=== PATIENT | female | born 1940 | race African-American/Black ===

== ENCOUNTER 2017-02-20 17:49 | Inpatient (IN) | payer MEDICARE, BC ==
[~2017-02-20] VITALS: Ht 152.4 cm; Wt 54.4 kg
[2017-02-20 17:53] VITALS: BP 79/56
[2017-02-20] MEDS ORDERED: ACETAMINOP160 MG/54 ORAL (18:18)
[2017-02-20] MEDS ORDERED: VANCOCIN250 MG IVPB (18:18)
[2017-02-20] MEDS ORDERED: BISACODYL5 MG RC (18:18)
[2017-02-20] MEDS ORDERED: XARELTO10 MG ORAL (18:18)
[2017-02-20] MEDS ORDERED: OXYCODONE HCL5 M2 ORAL (18:18)
[2017-02-20] MEDS ORDERED: ALOE VERA25 MG PO (18:18)
[2017-02-20] MEDS ORDERED: CLOPIDOGREL75 MG ORAL (18:18)
[2017-02-20] MEDS ORDERED: PROTONIX40 MG ORAL (18:18)
[2017-02-20] MEDS ORDERED: FLUCONAZOLE100 MG IVPB (18:18)
[2017-02-20] MEDS ORDERED: PYRIDOXINE HCL50 MG ORAL (18:18)
[2017-02-20] MEDS ORDERED: SENNA8.6 M2 PO (18:18)
[2017-02-20] MEDS ORDERED: ASCORBIC ACID500 MG ORAL (18:18)
[2017-02-20] MEDS ORDERED: FLEET ENEMA133 ML RECTAL (18:18)
[2017-02-20] MEDS ORDERED: VITAMIN B COMP1 EAC2 ORAL (18:18)
[2017-02-20] MEDS ORDERED: COLACE100 MG ORAL (18:18)
[2017-02-20] MEDS ORDERED: MILK OF MA400 MG/51 ORAL (18:18)
--- NOTE | 2017-02-20 18:26 | Emergency Room Report ---
History of Present Illness General Chief Complaint: Dyspnea/Respdistress Source: Medical Record, EMS Present Illness HPI Patient was brought in from nursing facility with complaints of shortness of breath Patient herself is essentially nonverbal makes eye contact however Patient has history of stage III uterine cancer and pe Patient was found to be short of breath And paramedics were summoned Again patient herself is unable to provide any history this does limit the history of present illness Unknown regarding recent fever no reports of any vomiting or diarrhea Allergies: Coded Allergies: IODINE (Verified Allergy, Mild, 10/11/11) PENICILLIN G (Verified Allergy, Mild, 10/11/11) SULFA (SULFONAMIDE ANTIBIOTICS) (Verified Allergy, Mild, 10/11/11) PENICILLINS (Unverified Allergy, Unknown, 02/20/17) Patient History Limited by: medical condition Past Medical History: see triage record Pertinent Family History: unable to obtain Reviewed Nursing Documentation: PMH: Agreed, PSxH: Agreed Nursing Documentation-PMH Hx Cardiac Problems: Yes - PE Hx Hypertension: Yes Hx Diabetes: Yes Review of Systems All Other Systems: limited - Other than the ones mentioned in the history of present illness all others are reviewed however they do stay limited due to the patient's mental status Physical Exam Vital Signs Date Time Temp Pulse Resp B/P Pulse Ox O2 Delivery O2 Flow Rate FiO2 02/20/17 17:47 75 25 80/50 85 Non-Rebreather 15.0 Sp02 EP Interpretation: abnormal - low percentage, on 10 liter 94 % which is normal General Appearance: mild distress - appears short of breath Head: normocephalic, atraumatic Eyes: bilateral eye PERRL ENT: normal pharynx, no angioedema Neck: supple, thyroid normal Respiratory: crackles - diffusely Cardiovascular #1: regular rate, rhythm, no edema Gastrointestinal: non tender Musculoskeletal: other - No obvious focal deficit, patient moving both upper extremities equally Neurologic: responsive - to physical stimuli Skin: no rash Lymphatic: no adenopathy Medical Decision Making Diagnostic Impression: Primary Impression: Pneumonia Additional Impression: Metastatic lung carcinoma ER Course Patient is a fairly complex patient with multiple differential to consideration including but not limited to cardiac cardiopulmonary and vascular emergencies Patient's x-ray appears abnormal CT chest was obtained for further evaluation There is evidence of bilateral effusions and what appears to be likely metastatic carcinoma Patient at this time is doing significantly better with acute intervention saturations and blood pressure have improved Patient initiated on initial antibiotics and requires further care Labs Test 02/20/17 18:00 02/20/17 18:40 White Blood Count 12.6 K/UL (4.8-10.8) Red Blood Count 3.57 M/UL (4.20-5.40) Hemoglobin 11.1 G/DL (12.0-16.0) Hematocrit 33.4 % (37.0-47.0) Mean Corpuscular Volume 94 FL (80-99) Mean Corpuscular Hemoglobin 31.0 PG (27.0-31.0) Mean Corpuscular Hemoglobin Concent 33.1 G/DL (32.0-36.0) Red Cell Distribution Width 13.9 % (11.6-14.8) Platelet Count 188 K/UL (150-450) Mean Platelet Volume 6.7 FL (6.5-10.1) Neutrophils (%) (Auto) % (45.0-75.0) Lymphocytes (%) (Auto) % (20.0-45.0) Monocytes (%) (Auto) % (1.0-10.0) Eosinophils (%) (Auto) % (0.0-3.0) Basophils (%) (Auto) % (0.0-2.0) Differential Total Cells Counted 100 Neutrophils % (Manual) 87 % (45-75) Lymphocytes % (Manual) 7 % (20-45) Monocytes % (Manual) 4 % (1-10) Eosinophils % (Manual) 0 % (0-3) Basophils % (Manual) 0 % (0-2) Band Neutrophils 2 % (0-8) Platelet Estimate Adequate Platelet Morphology Normal Red Blood Cell Morphology Normal Prothrombin Time 12.5 SEC (9.30-11.50) Prothromb Time International Ratio 1.2 (0.9-1.1) Activated Partial Thromboplast Time 41 SEC (23-33) Sodium Level 132 mEQ/L (135-145) Potassium Level 3.8 mEQ/L (3.4-4.9) Chloride Level 97 mEQ/L (98-107) Carbon Dioxide Level 15 mEQ/L (20-30) Anion Gap 20 (5-15) Blood Urea Nitrogen 16 mg/dL (7-23) Creatinine 1.4 mg/dL (0.5-0.9) Estimat Glomerular Filtration Rate mL/min (>60) Glucose Level 105 mg/dL (74-106) Lactic Acid Level 1.30 mmol/L (0.66-2.22) Calcium Level 8.5 mg/dL (8.6-10.2) Total Bilirubin 0.3 mg/dL (0.0-1.2) Aspartate Amino Transf (AST/SGOT) 12 U/L (5-40) Alanine Aminotransferase (ALT/SGPT) 5 U/L (3-33) Alkaline Phosphatase 77 U/L (35-104) Total Creatine Kinase 16 U/L (26-140) Creatine Kinase MB 2.1 ng/mL (< 3.8) Creatine Kinase MB Relative Index 13.1 Troponin I < 0.30 ng/mL (<=0.30) Pro-B-Type Natriuretic Peptide 895 pg/mL (0-450) Total Protein 5.4 g/dL (6.6-8.7) Albumin 2.0 g/dL (3.5-5.2) Globulin 3.4 g/dL Albumin/Globulin Ratio 0.5 (1.0-2.7) Lipase 8 U/L (< 60) Arterial Blood pH 7.225 (7.350-7.450) Arterial Blood Partial Pressure CO2 44.2 mmHg (35.0-45.0) Arterial Blood Partial Pressure O2 24.3 mmHg (75.0-100.0) Arterial Blood HCO3 17.9 mmol/L (22.0-26.0) Arterial Blood Oxygen Saturation 39.9 % (92.0-98.0) Arterial Blood Base Excess -9.4 Nando Test Positive Rhythm Strip Diag. Results EP Interpretation: yes Rate: 67 Rhythm: NSR, no PVC's, no ectopy, other - Nonspecific ST and T-wave changes Chest X-Ray Diagnostic Results EP Interpretation: Yes Findings: no pneumothorax, other - Bilateral effusions, right appears to be worse and left borderline cardiomegaly no acute bony abnormalities, Number of Views: 1 CT/MRI/US Diagnostic Results CT/MRI/US Diagnostic Results : Impression CT chest: Bilateral effusions bilateral lung nodules consistent with metastatic disease liver mass splenic calcifications Last Vital Signs Date Time Temp Pulse Resp B/P Pulse Ox O2 Delivery O2 Flow Rate FiO2 02/20/17 17:47 75 25 80/50 85 Non-Rebreather 15.0 Status: improved Disposition: ADMITTED INPATIENT Condition: Serious SHAUN ABURTO D.O. Feb 20, 2017 18:26
[2017-02-20 18:32] LABS: MEAN CORPUSCULAR HGB CONC 33.1 G/DL (32.0-36.0); MEAN CORPUSCULAR VOLUME 94 FL (80-99); MEAN PLATELET VOLUME 6.7 FL (6.5-10.1); PLATELET COUNT 188 K/UL (150-450); RED BLOOD COUNT 3.57 M/UL (4.20-5.40); RED CELL DISTRIBUTION WIDTH 13.9 % (11.6-14.8); WHITE BLOOD COUNT 12.6 K/UL (4.8-10.8)
[2017-02-20 18:44] LABS: ABG ALLEN TEST POSITIVE; ABG BASE EXCESS -9.4; ABG PCO2 44.2 mmHg (35.0-45.0)
[2017-02-20 18:46] LABS: ALANINE AMINOTRANSFERASE 5 U/L (3-33); ALBUMIN/GLOBULIN RATIO 0.5 (1.0-2.7); ANION GAP 20 (5-15); ASPARTATE AMINO TRANSFERASE 12 U/L (5-40); CALCIUM 8.5 mg/dL (8.6-10.2); CARBON DIOXIDE 15 mEQ/L (20-30); CHLORIDE 97 mEQ/L (98-107); CREATININE 1.4 mg/dL (0.5-0.9); HEMOLYSIS 10; LIPASE 8 U/L (< 60); POTASSIUM 3.8 mEQ/L (3.4-4.9); SODIUM 132 mEQ/L (135-145); TOTAL PROTEIN 5.4 g/dL (6.6-8.7); TROPONIN I < 0.30 ng/mL (<=0.30)
[2017-02-20 18:56] LABS: CKMB 2.1 ng/mL (< 3.8)
[2017-02-20] MEDS ORDERED: Aztreonam Inj 1 GM in NS 55 ML IV ONE (19:15)
[2017-02-20 19:38] LABS: INR 1.2 (0.9-1.1); PROTHROMBIN TIME 12.5 SEC (9.30-11.50)
[2017-02-20 20:04] LABS: BAND NEUTROPHILS % (MANUAL) 2 % (0-8); LYMPHOCYTES % (MANUAL) 7 % (20-45); NEUTROPHILS % (MANUAL) 87 % (45-75); TOTAL CELLS COUNTED 100
[2017-02-20 20:05] LABS: BASOPHILS % (MANUAL) 0 % (0-2); EOSINOPHILS % (MANUAL) 0 % (0-3); PLATELET ESTIMATE ADEQUATE
[2017-02-20 20:06] LABS: PLATELET MORPHOLOGY NORMAL
[2017-02-20 20:19] VITALS: BP 101/65
[2017-02-20 21:22] VITALS: BP 85/55
[2017-02-20 21:24] LABS: KETONES,URINE 1+ (NEGATIVE); LEUKOCYTE ESTERASE ,URINE 3+ (NEGATIVE); NITRITE,URINE POSITIVE (NEGATIVE); PH,URINE 6.5 (4.5-8.0); PROTEIN,URINE 3+ (NEGATIVE); UROBILINOGEN,URINE 1 MG/DL (0.0-1.0)
[2017-02-20 21:26] LABS: APPEARANCE,URINE VERY CLOUDY
[2017-02-20 21:27] LABS: RBC,URINE TNTC /HPF (0 - 2); WBC,URINE TNTC /HPF (0 - 2)
[2017-02-20 21:28] LABS: BACTERIA,URINE MANY /HPF; SQUAMOUS EPITHELIAL CELL,UR MANY /LPF (NONE/OCC)
[2017-02-20] MEDS ORDERED: Miralax 17gm pkt ORAL PRN (21:30)
[2017-02-20] MEDS ORDERED: DuoNeb 0.5-3(2.5)mg/3ml neb HHN PRN (21:30)
[2017-02-20] MEDS ORDERED: Promethazine/Codeine 5ml UD ORAL PRN (21:30)
[2017-02-20] MEDS ORDERED: Nitroglycerin Subl 0.4mg tab (Bottle Of 25) SL PRN (21:30)
[2017-02-20] MEDS ORDERED: Mylanta II UD 30ml ORAL PRN (21:30)
[2017-02-20 22:00] VITALS: BP 111/51
[2017-02-20] MEDS ORDERED: Vancomycin 500mg in D5W 110ml IVPB SCH (23:00)
[2017-02-21 04:00] VITALS: BP 119/56
[2017-02-21] MEDS ORDERED: Aztreonam Inj 0.5 GM in D5W 55 ML IVPB SCH (06:00)
--- NOTE | 2017-02-21 06:07 | Consultation ---
Consult Note Consult Note ID Dic # [id number] ANDIE MOREL M.D. Feb 21, 2017 06:07
[2017-02-21 08:00] VITALS: BP 82/59
[2017-02-21 08:19] LABS: MEAN CORPUSCULAR HEMOGLOBIN 31.2 PG (27.0-31.0); MEAN CORPUSCULAR HGB CONC 33.3 G/DL (32.0-36.0); MEAN CORPUSCULAR VOLUME 94 FL (80-99); MEAN PLATELET VOLUME 5.8 FL (6.5-10.1); PLATELET COUNT 200 K/UL (150-450); RED BLOOD COUNT 3.76 M/UL (4.20-5.40); WHITE BLOOD COUNT 8.3 K/UL (4.8-10.8)
[2017-02-21 08:38] LABS: ANION GAP 21 (5-15); CALCIUM 9.1 mg/dL (8.6-10.2); CARBON DIOXIDE 15 mEQ/L (20-30); CHLORIDE 98 mEQ/L (98-107); CREATININE 1.4 mg/dL (0.5-0.9); HEMOLYSIS 5; PHOSPHORUS 2.9 mg/dL (2.5-4.8); POTASSIUM 3.8 mEQ/L (3.4-4.9); SODIUM 134 mEQ/L (135-145)
--- NOTE | 2017-02-21 08:39 | Consultation ---
DATE OF CONSULTATION: INFECTIOUS DISEASE CONSULTATION: REFERRING PHYSICIAN: Jignesh Isbell M.D. REASON FOR CONSULTATION: Evaluation of patient for pneumonia and antibiotic management. HISTORY OF PRESENT ILLNESS: The patient is a 77-year-old female with multiple medical problems, who was admitted to this medical center due to shortness of breath. The patient having cough, however, according to the nurse at the bedside the patient has cough time. The patient also mentioned having bilateral lower extremity edema x1 week. Infectious consultation has been requested for further evaluation of the patient's antibiotic management. PAST MEDICAL HISTORY: 1. History of PE. 2. Hypertension. 3. History of lung cancer. 4. History . 5. Diabetes. MEDICATIONS: Levaquin and vancomycin. ALLERGIES: Iodine, penicillin, and sulfa. SOCIAL HISTORY: The patient lives at home with her son. FAMILY HISTORY: Noncontributory. PHYSICAL EXAMINATION: VITAL SIGNS: Temperature 97 degrees, pulse 86, respiratory rate 18, and blood pressure 119/56. HEENT: Mild pale conjunctivae. No icterus. NECK: No lymphadenopathy. CHEST: Coarse breathing sounds. HEART: S1 and S2. ABDOMEN: Soft and nontender. EXTREMITIES: Bilateral lower extremity edema. No evidence of cellulitis, cyanosis. NEUROLOGIC: Awake and alert. LABORATORY AND DIAGNOSTIC DATA: WBC 12, hemoglobin 11, and platelet 188,000. UA shows too numerous to count red blood cells and too numerous to count white blood cells. BUN 16 and creatinine 1.4. ALT, AST, and alkaline phosphatase unremarkable. Urine Legionella antigen is pending. Chest x-ray results are pending. ASSESSMENT: The patient is a 77-year-old female with multiple medical problems who was been admitted to this medical center due to shortness of breath and cough. The patient has mild leukocytosis. Chest x-ray result is pending. However, the patient coverage for community-acquired pneumonia. In view of her bilateral lower extremities, rule out possibility of DVT. PLAN: 1. We will continue the patient on IV Levaquin and hold IV vancomycin. 2. Monitor CBC. 3. Monitor BMP. 4. Monitor cultures (blood, sputum, and urine). 5. Monitor chest x-ray result. 6. Doppler lower extremity, rule out possibility of DVT. 7. Based on the patient's clinical course and labs, we will do further recommendation. Thank you, Dr. Isbell, for allowing me to participate in the care of this patient. I will follow the patient with you during this hospitalization. Haja Hutchison M.D. DR: Elizabeth JOB#: [id number] CC:
--- NOTE | 2017-02-21 09:12 | Diagnostic Imaging Report ---
Indications: Shortness of breath Technique: Continuous helical CT imaging of the thorax and upper abdomen was performed with automatic exposure control on a Siemens sensation [address] scanner. Axial images were reconstructed at 5 mm slice thickness and interval. Coronal images were reconstructed at 5 mm slice thickness. No IV contrast was administered secondary to requesting physician's order, despite no contraindications listed in either submitted clinical data or tech note.. CTDI volume(s): 16 mGy Total DLP: 568 mGy-cm Findings: Comparison: None Lack of IV contrast limits evaluation. Circumscribed soft tissue nodules are scattered throughout both lungs, up to 2 cm diameter. None appears calcified. Parenchymal consolidation and volume loss with air bronchograms in both lung bases. Large bilateral pleural effusions. Heart not enlarged. No obvious pericardial abnormality. Prominent arterial mural calcifications. Vascular patency indeterminate. Thoracic aorta nonaneurysmal. Calcified nodules throughout the mediastinum, left hilum. Diffuse body wall edema. Right upper extremity PICC in place, tip in superior vena cava. Left breast asymmetrically smaller than right. Surgical clips in left axilla. 3 cm low-attenuation mass hepatic segment 7 not further characterizable. Multiple punctate calcifications in the spleen. 2 cm circumscribed low attenuation mass upper pole cortex right kidney. Bilateral ureteral stents in place. Mild dilation of bilateral renal collecting systems. 3 cm right adrenal mass, 1 cm left adrenal mass, nonspecific. Osteophytes throughout thoracic, lower cervical, upper lumbar spine. IMPRESSION: Multiple lung masses compatible with metastatic neoplasm Evidence of previous left breast and axillary surgery--correlate for history of breast cancer Pulmonary bibasal atelectasis versus pneumonias Large bilateral pleural effusions, nonspecific Calcified old granulomas disease Arteriosclerosis Anasarca Nonspecific liver mass. Metastasis not excludable. Bilateral adrenal masses. Metastases must be excluded. Nonspecific right renal masses-cysts versus neoplasm Mild bilateral hydronephrosis despite ureteral stents in place, incompletely imaged. Stent obstruction not excludable. Further evaluation warranted. Degenerative spondylosis Right upper extremity PICC This correlates with Dr. Tolentino's preliminary report.
[2017-02-21] MEDS: Pyridoxine 50mg tab ORAL SCH (09:13)
--- NOTE | 2017-02-21 10:16 | Diagnostic Imaging Report ---
Indications: Shortness breath Technique: Portable AP chest Findings: Comparison: None Soft tissue nodules scattered throughout both lungs. Bilateral pleural effusions. Underlying parenchymal consolidation in either or both lung bases not excludable. Cardiac silhouette obscured. Bony vasculature obscured. Aortic arch calcified. Right upper extremity PICC. Left axillary surgical clips. IMPRESSION: Lateral lung nodules--granulomatous versus neoplastic Bibasal pleural effusions, nonspecific. Underlying atelectasis or pneumonia not excludable. Aortosclerosis PICC Previous left axillary surgery
[2017-02-21 10:19] LABS: BAND NEUTROPHILS % (MANUAL) 1 % (0-8); BASOPHILS % (MANUAL) 0 % (0-2); BURR CELLS 1+; EOSINOPHILS % (MANUAL) 0 % (0-3); LYMPHOCYTES % (MANUAL) 5 % (20-45); NEUTROPHILS % (MANUAL) 91 % (45-75); PLATELET ESTIMATE ADEQUATE; PLATELET MORPHOLOGY NORMAL; TOTAL CELLS COUNTED 100
--- NOTE | 2017-02-21 11:01 | Cardiology Report ---
APPROVED REPORT EKG Measurement Heart [id number] CT 134P4 [id number] Normal sinus rhythm Low voltage QRS Cannot rule out Anterior infarct, age undetermined Abnormal ECG
[2017-02-21 12:00] VITALS: BP 82/61
--- NOTE | 2017-02-21 12:56 | History and Physical ---
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 brought in with complaints of shortness of breath. Patient is essentially nonverbal makes eye contact however Pt was in respiratory failure on arrival of paramedics. She was put on NRM and her saturation improved. CXR and CT showed extensive metastatic disease. Allergies: Coded Allergies: IODINE (Verified Allergy, Mild, 10/11/11) PENICILLIN G (Verified Allergy, Mild, 10/11/11) SULFA (SULFONAMIDE ANTIBIOTICS) (Verified Allergy, Mild, 10/11/11) PENICILLINS (Unverified Allergy, Unknown, 02/20/17) Medication History Scheduled Ascorbic Acid* (Ascorbic Acid*), 500 MG ORAL DAILY, (Reported) Clopidogrel* (Clopidogrel*), 75 MG ORAL DAILY, (Reported) Docusate Sodium* (Colace*), 100 MG ORAL TWICE A DAY, (Reported) Fluconazole (Fluconazole), 100 MG IVPB DAILY, (Reported) Magnesium Hydroxide* (Milk Of Magnesia*), 30 ML ORAL DAILY, (Reported) Pantoprazole* (Protonix*), 40 MG ORAL DAILY, (Reported) Pyridoxine Hcl* (Vitamin B-6*), 50 MG ORAL DAILY, (Reported) Rivaroxaban (Xarelto*), 20 MG ORAL DAILY, (Reported) Vancomycin HCl (Vancocin HCl), 500 MG IVPB Q18 HRS, (Reported) Scheduled PRN Acetaminophen* (Acetaminophen*), 650 MG ORAL Q6H PRN for Mild Pain/Temp > 100.5, (Reported) Bisacodyl* (Dulcolax*), 10 MG RC ONCE PRN for Constipation, (Reported) Na Phos,M-B/Na Phos,Di-Ba* (Fleet Enema*), 133 ML RECTAL DAILY PRN for Constipation, (Reported) Oxycodone Hcl* (Oxycodone Hcl*), 5 MG ORAL Q4H PRN for For Pain, (Reported) Miscellaneous Medications Aloe Vera (Aloe Vera), 25 MG PO, (Reported) Sennosides (Senna), 8.6 MG PO, (Reported) Vitamin B Complex (Vitamin B Complex), 1 CAP ORAL, (Reported) Patient History Healthcare decision maker Resuscitation status Chemical (Meds Only) Advanced Directive on File Past Medical/Surgical History Past Medical/Surgical History: (1) Diabetes (2) Obstructive uropathy Review of Systems All Other Systems: negative except mentioned in HPI Physical Exam General Appearance: cachetic Lines, tubes and drains: peripheral, central line HEENT: normocephalic, atraumatic Neck: non-tender, normal alignment Respiratory/Chest: rhonchi - bilaterally Cardiovascular/Chest: normal peripheral pulses, normal rate Abdomen: normal bowel sounds, non tender Genitourinary/Rectal: normal genital exam Extremities: normal range of motion Skin Exam: normal pigmentation Neurologic: relationship management lead II-XII grossly normal Last 24 Hour Vital Signs Date Time Temp Pulse Resp B/P Pulse Ox O2 Delivery O2 Flow Rate FiO2 02/21/17 12:00 97.2 87 16 82/61 93 Room Air 02/21/17 08:00 97.7 65 16 82/59 100 Room Air 02/21/17 08:00 82 02/21/17 04:00 97.0 82 16 119/56 94 Room Air 02/21/17 04:00 79 02/20/17 22:08 97.8 85 17 85/55 100 Nasal Cannula 2.0 02/20/17 22:00 96.8 81 20 111/51 98 Nasal Cannula 2.0 02/20/17 21:22 97.8 85 17 85/55 100 Nasal Cannula 2.0 02/20/17 20:19 97.8 89 17 101/65 100 Room Air 02/20/17 17:53 96.7 88 22 79/56 95 Non-Rebreather 15.0 02/20/17 17:53 75 25 Room Air 15.0 02/20/17 17:47 75 25 80/50 85 Non-Rebreather 15.0 Intake and Output 02/20/17 02/21/17 19:00 07:00 Intake Total 55 ml Output Total 200 ml Balance -145 ml Intake Oral 0 ml IV Total 55 ml Output Urine Total 200 ml Laboratory Tests Test 02/20/17 18:00 02/20/17 18:40 02/20/17 20:50 02/20/17 21:22 White Blood Count 12.6 K/UL (4.8-10.8) H Red Blood Count 3.57 M/UL (4.20-5.40) L Hemoglobin 11.1 G/DL (12.0-16.0) L Hematocrit 33.4 % (37.0-47.0) L Mean Corpuscular Volume 94 FL (80-99) Mean Corpuscular Hemoglobin 31.0 PG (27.0-31.0) Mean Corpuscular Hemoglobin Concent 33.1 G/DL (32.0-36.0) Red Cell Distribution Width 13.9 % (11.6-14.8) Platelet Count 188 K/UL (150-450) Mean Platelet Volume 6.7 FL (6.5-10.1) Neutrophils (%) (Auto) % (45.0-75.0) Lymphocytes (%) (Auto) % (20.0-45.0) Monocytes (%) (Auto) % (1.0-10.0) Eosinophils (%) (Auto) % (0.0-3.0) Basophils (%) (Auto) % (0.0-2.0) Differential Total Cells Counted 100 Neutrophils % (Manual) 87 % (45-75) H Lymphocytes % (Manual) 7 % (20-45) L Monocytes % (Manual) 4 % (1-10) Eosinophils % (Manual) 0 % (0-3) Basophils % (Manual) 0 % (0-2) Band Neutrophils 2 % (0-8) Platelet Estimate Adequate Platelet Morphology Normal Red Blood Cell Morphology Normal Prothrombin Time 12.5 SEC (9.30-11.50) H Prothromb Time International Ratio 1.2 (0.9-1.1) H Activated Partial Thromboplast Time 41 SEC (23-33) H Sodium Level 132 mEQ/L (135-145) L Potassium Level 3.8 mEQ/L (3.4-4.9) Chloride Level 97 mEQ/L (98-107) L Carbon Dioxide Level 15 mEQ/L (20-30) L Anion Gap 20 (5-15) H Blood Urea Nitrogen 16 mg/dL (7-23) Creatinine 1.4 mg/dL (0.5-0.9) H Estimat Glomerular Filtration Rate mL/min (>60) Glucose Level 105 mg/dL (74-106) Lactic Acid Level 1.30 mmol/L (0.66-2.22) Calcium Level 8.5 mg/dL (8.6-10.2) L Total Bilirubin 0.3 mg/dL (0.0-1.2) Aspartate Amino Transf (AST/SGOT) 12 U/L (5-40) Alanine Aminotransferase (ALT/SGPT) 5 U/L (3-33) Alkaline Phosphatase 77 U/L (35-104) Total Creatine Kinase 16 U/L (26-140) L Creatine Kinase MB 2.1 ng/mL (< 3.8) Creatine Kinase MB Relative Index 13.1 Troponin I < 0.30 ng/mL (<=0.30) Pro-B-Type Natriuretic Peptide 895 pg/mL (0-450) H Total Protein 5.4 g/dL (6.6-8.7) L Albumin 2.0 g/dL (3.5-5.2) L Globulin 3.4 g/dL Albumin/Globulin Ratio 0.5 (1.0-2.7) L Lipase 8 U/L (< 60) Arterial Blood pH 7.225 (7.350-7.450) Arterial Blood Partial Pressure CO2 44.2 mmHg (35.0-45.0) Arterial Blood Partial Pressure O2 24.3 mmHg (75.0-100.0) Arterial Blood HCO3 17.9 mmol/L (22.0-26.0) L Arterial Blood Oxygen Saturation 39.9 % (92.0-98.0) L Arterial Blood Base Excess -9.4 Nando Test Positive Urine Color Yellow Urine Appearance Very cloudy Urine pH 6.5 (4.5-8.0) Urine Specific [place] 1.010 (1.005-1.035) Urine Protein 3+ (NEGATIVE) H Urine Glucose (UA) Negative (NEGATIVE) Urine Ketones 1+ (NEGATIVE) H Urine Occult Blood 5+ (NEGATIVE) H Urine Nitrite Positive (NEGATIVE) H Urine Bilirubin Negative (NEGATIVE) Urine Urobilinogen 1 MG/DL (0.0-1.0) H Urine Leukocyte Esterase 3+ (NEGATIVE) H Urine RBC Tntc /HPF (0 - 2) H Urine WBC Tntc /HPF (0 - 2) H Urine Squamous Epithelial Cells Many /LPF (NONE/OCC) H Urine Bacteria Many /HPF (NONE) H Urine Legionella Antigen Pending Test 02/21/17 07:40 White Blood Count 8.3 K/UL (4.8-10.8) Red Blood Count 3.76 M/UL (4.20-5.40) L Hemoglobin 11.7 G/DL (12.0-16.0) L Hematocrit 35.2 % (37.0-47.0) L Mean Corpuscular Volume 94 FL (80-99) Mean Corpuscular Hemoglobin 31.2 PG (27.0-31.0) H Mean Corpuscular Hemoglobin Concent 33.3 G/DL (32.0-36.0) Red Cell Distribution Width 14.0 % (11.6-14.8) Platelet Count 200 K/UL (150-450) Mean Platelet Volume 5.8 FL (6.5-10.1) L Neutrophils (%) (Auto) % (45.0-75.0) Lymphocytes (%) (Auto) % (20.0-45.0) Monocytes (%) (Auto) % (1.0-10.0) Eosinophils (%) (Auto) % (0.0-3.0) Basophils (%) (Auto) % (0.0-2.0) Differential Total Cells Counted 100 Neutrophils % (Manual) 91 % (45-75) H Lymphocytes % (Manual) 5 % (20-45) L Monocytes % (Manual) 3 % (1-10) Eosinophils % (Manual) 0 % (0-3) Basophils % (Manual) 0 % (0-2) Band Neutrophils 1 % (0-8) Platelet Estimate Adequate Platelet Morphology Normal [place] Cells 1+ Sodium Level 134 mEQ/L (135-145) L Potassium Level 3.8 mEQ/L (3.4-4.9) Chloride Level 98 mEQ/L (98-107) Carbon Dioxide Level 15 mEQ/L (20-30) L Anion Gap 21 (5-15) H Blood Urea Nitrogen 16 mg/dL (7-23) Creatinine 1.4 mg/dL (0.5-0.9) H Estimat Glomerular Filtration Rate mL/min (>60) Glucose Level 83 mg/dL (74-106) Calcium Level 9.1 mg/dL (8.6-10.2) Phosphorus Level 2.9 mg/dL (2.5-4.8) Albumin 2.2 g/dL (3.5-5.2) L Height (Feet): 5 Height (Inches): 0.00 Weight (Pounds): 120 Medications Current Medications Medications (Trade) Dose Ordered Sig/Calvin Route PRN Reason Start Time Stop Time Status Last Admin Dose Admin Acetaminophen (Tylenol) 650 mg Q4H PRN ORAL fever 02/20/17 21:30 03/22/17 21:29 02/21/17 09:45 Al Hydroxide/Mg Hydroxide (Mylanta II) 30 ml Q6H PRN ORAL dyspepsia 02/20/17 21:30 03/22/17 21:29 Albuterol/ Ipratropium (DuoNeb 0.5-3(2.5)mg/3ml) 3 ml Q4H PRN HHN Shortness of Breath 02/20/17 21:30 02/25/17 21:29 Levofloxacin (Levaquin) 50 ml @ 50 mls/hr Q24H IVPB 02/21/17 20:00 02/28/17 19:59 Nitroglycerin (Ntg) 0.4 mg Q5MIN X 3 DOSES PRN SL Prn Chest Pain 02/20/17 21:30 03/22/17 21:29 Ondansetron HCl (Zofran) 4 mg Q6H PRN IVP Nausea & Vomiting 02/20/17 21:30 03/22/17 21:29 Polyethylene Glycol (Miralax) 17 gm DAILYPRN PRN ORAL Constipation 02/20/17 21:30 03/22/17 21:29 Promethazine HCl/ Codeine (Phenergan with Codeine) 5 ml Q4H PRN ORAL For Cough 02/20/17 21:30 03/22/17 21:29 Pyridoxine HCl (Vitamin B6) 50 mg DAILY ORAL 02/21/17 09:00 03/23/17 08:59 02/21/17 09:13 Rivaroxaban (Xarelto) 15 mg QPM ORAL 02/21/17 22:00 03/23/17 21:59 Temazepam 15 mg 15 mg HSPRN PRN ORAL Insomnia 02/20/17 21:30 02/27/17 21:29 Assessment/Plan Problem List: (1) Sepsis ICD Codes: A41.9 - Sepsis, unspecified organism SNOMED: 49087811 (2) Acute respiratory failure ICD Codes: J96.00 - Acute respiratory failure, unspecified whether with hypoxia or hypercapnia SNOMED: 44648394 (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 Codes: C78.00 - Secondary malignant neoplasm of unspecified lung; C49.9 - Malignant neoplasm of connective and soft tissue, unspecified SNOMED: 96501997, 978429677, 788855946 (4) Pleural effusion ICD Codes: J90 - Pleural effusion, not elsewhere classified SNOMED: 73087724 (5) four point physiologic quadroplegia (6) Diabetes ICD Codes: E11.9 - Type 2 diabetes mellitus without complications SNOMED: 24924900 (7) Obstructive uropathy ICD Codes: N13.9 - Obstructive and reflux uropathy, unspecified SNOMED: 6461363 Assessment/Plan IV antibiotics respiratory treatment swallow study thoracentesis check electrolytes discussed "no code" with the son. They are not ready for it yet. KASANDRA MILLER Feb 21, 2017 12:56
[2017-02-21] MEDS ORDERED: Heparin 2000 units/Ns 1000ml IV ONE (14:00)
[2017-02-21] MEDS ORDERED: Heparin 5000 units/ml inj IV ONE (15:00)
[2017-02-21] MEDS ORDERED: Heparin 25,000u/D5W 500ml 500 ML IV SCH (15:15)
[2017-02-21 16:00] VITALS: BP 105/66
[2017-02-21] MEDS: Dronabinol 2.5mg Cap ORAL SCH (16:01)
[2017-02-21 19:44] VITALS: BP 100/58
[2017-02-21] MEDS ORDERED: Xarelto 15mg tab ORAL SCH (22:00)
[2017-02-22 00:07] VITALS: BP 84/57
[2017-02-22 02:53] LABS: BASOPHILS % (AUTO) 0.6 % (0.0-2.0); EOSINOPHILS % (AUTO) 0.8 % (0.0-3.0); LYMPHOCYTES % (AUTO) 5.7 % (20.0-45.0); MEAN CORPUSCULAR HEMOGLOBIN 30.8 PG (27.0-31.0); MEAN CORPUSCULAR HGB CONC 33.2 G/DL (32.0-36.0); MEAN CORPUSCULAR VOLUME 93 FL (80-99); MEAN PLATELET VOLUME 6.2 FL (6.5-10.1); NEUTROPHILS % (AUTO) 83.9 % (45.0-75.0); PLATELET COUNT 200 K/UL (150-450); RED CELL DISTRIBUTION WIDTH 13.9 % (11.6-14.8); WHITE BLOOD COUNT 7.4 K/UL (4.8-10.8)
[2017-02-22 03:13] LABS: ALANINE AMINOTRANSFERASE 5 U/L (3-33); ALBUMIN/GLOBULIN RATIO 0.5 (1.0-2.7); ANION GAP 16 (5-15); ASPARTATE AMINO TRANSFERASE 12 U/L (5-40); CALCIUM 8.7 mg/dL (8.6-10.2); CARBON DIOXIDE 16 mEQ/L (20-30); CHLORIDE 100 mEQ/L (98-107); CREATININE 1.5 mg/dL (0.5-0.9); HEMOLYSIS 3; POTASSIUM 3.8 mEQ/L (3.4-4.9); SODIUM 132 mEQ/L (135-145); TOTAL PROTEIN 5.1 g/dL (6.6-8.7)
[2017-02-22 04:00] VITALS: BP 92/73
[2017-02-22] MEDS ORDERED: Heparin 25,000u/D5W 500ml 500 ML IV SCH (06:00)
[2017-02-22] MEDS: Pyridoxine 50mg tab ORAL SCH (08:30)
[2017-02-22] MEDS: Dronabinol 2.5mg Cap ORAL SCH (08:30)
--- NOTE | 2017-02-22 10:17 | Infectious Diseases Prog Note ---
Assessment/Plan Assessment/Plan A: The patient is a 77-year-old female with Pneumonia UCx : GNR ( colonizer ) Mild leukocytosis, SP CT: Multiple lung masses compatible with metastatic neoplasm , Liver Mass, BL Renal Masses w Mild [place] , Bilateral adrenal masses Bilateral lower extremity edema x1 week rule out possibility of DVT History of PE. HTN History of lung cancer. Diabetes PLAN: Cont on IV Levaquin d# 2 / 5 Monitor CBC. Monitor BMP. Monitor cultures (blood, sputum, and urine). Monitor chest x-ray result. Doppler lower extremity, rule out possibility of DVT Urine Legionella antigen : pending Subjective Constitutional: Denies: anorexia, chills, drenching sweats, fatigue, fever, no symptoms, other Allergies: Coded Allergies: IODINE (Verified Allergy, Mild, 10/11/11) PENICILLIN G (Verified Allergy, Mild, 10/11/11) SULFA (SULFONAMIDE ANTIBIOTICS) (Verified Allergy, Mild, 10/11/11) PENICILLINS (Unverified Allergy, Unknown, 02/20/17) Objective Vital Signs Last 24 Hour Vital Signs Date Time Temp Pulse Resp B/P Pulse Ox O2 Delivery O2 Flow Rate FiO2 02/22/17 08:00 87 02/22/17 04:00 80 02/22/17 04:00 96.8 80 18 92/73 96 Room Air 02/22/17 00:07 97.8 75 18 84/57 93 Room Air 02/22/17 00:00 88 02/21/17 20:00 84 02/21/17 19:44 97.0 56 18 100/58 99 Room Air 02/21/17 16:00 97.3 55 18 105/66 100 Room Air 02/21/17 16:00 82 02/21/17 12:00 97.2 87 16 82/61 93 Room Air 02/21/17 12:00 92 Height (Feet): 5 Height (Inches): 0.00 Weight (Pounds): 120 HEENT: anicteric Respiratory/Chest: no respiratory distress Cardiovascular: regularly irregular Abdomen: no organomegaly Microbiology Date/Time Source Procedure Growth Status 02/20/17 18:15 Blood Blood Culture - Preliminary NO GROWTH AFTER 24 HOURS Resulted 02/20/17 18:00 Blood Blood Culture - Preliminary NO GROWTH AFTER 24 HOURS Resulted 02/20/17 20:50 Urine,Clean Catch Urine Culture - Preliminary Gram Negative Bacillus 1 Resulted Laboratory Tests Test 02/22/17 02:30 White Blood Count 7.4 K/UL (4.8-10.8) Red Blood Count 3.50 M/UL (4.20-5.40) L Hemoglobin 10.8 G/DL (12.0-16.0) L Hematocrit 32.4 % (37.0-47.0) L Mean Corpuscular Volume 93 FL (80-99) Mean Corpuscular Hemoglobin 30.8 PG (27.0-31.0) Mean Corpuscular Hemoglobin Concent 33.2 G/DL (32.0-36.0) Red Cell Distribution Width 13.9 % (11.6-14.8) Platelet Count 200 K/UL (150-450) Mean Platelet Volume 6.2 FL (6.5-10.1) L Neutrophils (%) (Auto) 83.9 % (45.0-75.0) H Lymphocytes (%) (Auto) 5.7 % (20.0-45.0) L Monocytes (%) (Auto) 9.0 % (1.0-10.0) Eosinophils (%) (Auto) 0.8 % (0.0-3.0) Basophils (%) (Auto) 0.6 % (0.0-2.0) Activated Partial Thromboplast Time > 150 SEC (23-33) *H Sodium Level 132 mEQ/L (135-145) L Potassium Level 3.8 mEQ/L (3.4-4.9) Chloride Level 100 mEQ/L (98-107) Carbon Dioxide Level 16 mEQ/L (20-30) L Anion Gap 16 (5-15) H Blood Urea Nitrogen 17 mg/dL (7-23) Creatinine 1.5 mg/dL (0.5-0.9) H Estimat Glomerular Filtration Rate mL/min (>60) Glucose Level 103 mg/dL (74-106) Calcium Level 8.7 mg/dL (8.6-10.2) Total Bilirubin 0.2 mg/dL (0.0-1.2) Aspartate Amino Transf (AST/SGOT) 12 U/L (5-40) Alanine Aminotransferase (ALT/SGPT) 5 U/L (3-33) Alkaline Phosphatase 69 U/L (35-104) Pro-B-Type Natriuretic Peptide 764 pg/mL (0-450) H Total Protein 5.1 g/dL (6.6-8.7) L Albumin 1.9 g/dL (3.5-5.2) L Globulin 3.2 g/dL Albumin/Globulin Ratio 0.5 (1.0-2.7) L Current Medications Medications (Trade) Dose Ordered Sig/Calvin Route PRN Reason Start Time Stop Time Status Last Admin Dose Admin Acetaminophen (Tylenol) 650 mg Q4H PRN ORAL fever 02/20/17 21:30 03/22/17 21:29 02/22/17 09:19 Al Hydroxide/Mg Hydroxide (Mylanta II) 30 ml Q6H PRN ORAL dyspepsia 02/20/17 21:30 03/22/17 21:29 Albuterol/ Ipratropium (DuoNeb 0.5-3(2.5)mg/3ml) 3 ml Q4H PRN HHN Shortness of Breath 02/20/17 21:30 02/25/17 21:29 Dronabinol 2.5 mg 2.5 mg DAILY ORAL 02/21/17 16:00 03/23/17 15:59 02/22/17 08:30 Heparin Sodium/ Dextrose (Heparin) 500 ml @ 15.241 mls/ hr adjust per protocol IV 02/22/17 06:00 03/24/17 05:59 02/22/17 06:35 Levofloxacin (Levaquin) 50 ml @ 50 mls/hr Q24H IVPB 02/21/17 20:00 02/28/17 19:59 02/21/17 21:02 Nitroglycerin (Ntg) 0.4 mg Q5MIN X 3 DOSES PRN SL Prn Chest Pain 02/20/17 21:30 03/22/17 21:29 Ondansetron HCl (Zofran) 4 mg Q6H PRN IVP Nausea & Vomiting 02/20/17 21:30 03/22/17 21:29 Polyethylene Glycol (Miralax) 17 gm DAILYPRN PRN ORAL Constipation 02/20/17 21:30 03/22/17 21:29 Promethazine HCl/ Codeine (Phenergan with Codeine) 5 ml Q4H PRN ORAL For Cough 02/20/17 21:30 03/22/17 21:29 Pyridoxine HCl (Vitamin B6) 50 mg DAILY ORAL 02/21/17 09:00 03/23/17 08:59 02/22/17 08:30 Temazepam 15 mg 15 mg HSPRN PRN ORAL Insomnia 02/20/17 21:30 02/27/17 21:29 ANDIE MOREL M.D. Feb 22, 2017 10:17
[2017-02-22 12:00] VITALS: BP 124/58
--- NOTE | 2017-02-22 12:03 | Diagnostic Imaging Report ---
Indication: DYSPNEA Technique: One view of the chest Comparison: 02/20/2017 Findings: Bilateral pleural effusions, bilateral pulmonary nodules, interstitial congestive changes persist, unchanged right arm PICC remains. Left axillary surgical clips are again demonstrated Impression: Unchanged, over 2 days, findings as above.
--- NOTE | 2017-02-22 12:10 | Pulmonology Progress Note ---
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 (4) Pleural effusion (5) four point physiologic quadroplegia (6) Diabetes (7) Obstructive uropathy Assessment/Plan thoracentesis today IV heparin for dvt will need [facility] cou[facility] cxr tomorrow Subjective ROS Limited/Unobtainable: No Constitutional: Reports: no symptoms Allergies: Coded Allergies: IODINE (Verified Allergy, Mild, 10/11/11) PENICILLIN G (Verified Allergy, Mild, 10/11/11) SULFA (SULFONAMIDE ANTIBIOTICS) (Verified Allergy, Mild, 10/11/11) PENICILLINS (Unverified Allergy, Unknown, 02/20/17) Objective Last 24 Hour Vital Signs Date Time Temp Pulse Resp B/P Pulse Ox O2 Delivery O2 Flow Rate FiO2 02/22/17 10:25 96.8 02/22/17 08:00 87 02/22/17 04:00 80 02/22/17 04:00 96.8 80 18 92/73 96 Room Air 02/22/17 00:07 97.8 75 18 84/57 93 Room Air 02/22/17 00:00 88 02/21/17 20:00 84 02/21/17 19:44 97.0 56 18 100/58 99 Room Air 02/21/17 16:00 97.3 55 18 105/66 100 Room Air 02/21/17 16:00 82 Intake and Output 02/21/17 02/22/17 19:00 07:00 Intake Total 279.190 ml 437.190 ml Output Total 200 ml Balance 279.190 ml 237.190 ml Intake Oral 240 ml 240 ml IV Total 39.190 ml 197.190 ml Output Urine Total 200 ml HEENT: normocephalic Respiratory/Chest: chest wall non-tender, crackles/rales Cardiovascular: normal peripheral pulses, normal rate Abdomen: normal bowel sounds, no organomegaly Skin: no rash 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 Microbiology Date/Time Source Procedure Growth Status 02/20/17 18:15 Blood Blood Culture - Preliminary NO GROWTH AFTER 24 HOURS Resulted 02/20/17 18:00 Blood Blood Culture - Preliminary NO GROWTH AFTER 24 HOURS Resulted 02/20/17 20:50 Urine,Clean Catch Urine Culture - Preliminary Gram Negative Bacillus 1 Resulted Laboratory Tests 02/22/17 02:30: White Blood Count 7.4, Red Blood Count 3.50L, Hemoglobin 10.8L, Hematocrit 32.4L , Mean Corpuscular Volume 93, Mean Corpuscular Hemoglobin 30.8, Mean Corpuscular Hemoglobin Concent 33.2, Red Cell Distribution Width 13.9, Platelet Count 200, Mean Platelet Volume 6.2L, Neutrophils (%) (Auto) 83.9H, Lymphocytes (%) (Auto) 5.7L, Monocytes (%) (Auto) 9.0, Eosinophils (%) (Auto) 0.8, Basophils (%) (Auto) 0.6, Activated Partial Thromboplast Time > 150*H, Sodium Level 132L, Potassium Level 3.8, Chloride Level 100, Carbon Dioxide Level 16L, Anion Gap 16H, Blood Urea Nitrogen 17, Creatinine 1.5H, Estimat Glomerular Filtration Rate , Glucose Level 103, Calcium Level 8.7, Total Bilirubin 0.2, Aspartate Amino Transf (AST/SGOT) 12, Alanine Aminotransferase (ALT/SGPT) 5, Alkaline Phosphatase 69, Pro-B-Type Natriuretic Peptide 764H, Total Protein 5.1L , Albumin 1.9L, Globulin 3.2, Albumin/Globulin Ratio 0.5L Current Medications Medications (Trade) Dose Ordered Sig/Calvin Route PRN Reason Start Time Stop Time Status Last Admin Dose Admin Acetaminophen (Tylenol) 650 mg Q4H PRN ORAL fever 02/20/17 21:30 03/22/17 21:29 02/22/17 09:19 Al Hydroxide/Mg Hydroxide (Mylanta II) 30 ml Q6H PRN ORAL dyspepsia 02/20/17 21:30 03/22/17 21:29 Albuterol/ Ipratropium (DuoNeb 0.5-3(2.5)mg/3ml) 3 ml Q4H PRN HHN Shortness of Breath 02/20/17 21:30 02/25/17 21:29 Dronabinol 2.5 mg 2.5 mg DAILY ORAL 02/21/17 16:00 03/23/17 15:59 02/22/17 08:30 Heparin Sodium/ Dextrose (Heparin) 500 ml @ 15.241 mls/ hr adjust per protocol IV 02/22/17 06:00 03/24/17 05:59 02/22/17 06:35 Levofloxacin (Levaquin) 50 ml @ 50 mls/hr Q24H IVPB 02/21/17 20:00 02/28/17 19:59 02/21/17 21:02 Nitroglycerin (Ntg) 0.4 mg Q5MIN X 3 DOSES PRN SL Prn Chest Pain 02/20/17 21:30 03/22/17 21:29 Ondansetron HCl (Zofran) 4 mg Q6H PRN IVP Nausea & Vomiting 02/20/17 21:30 03/22/17 21:29 Polyethylene Glycol (Miralax) 17 gm DAILYPRN PRN ORAL Constipation 02/20/17 21:30 03/22/17 21:29 Promethazine HCl/ Codeine (Phenergan with Codeine) 5 ml Q4H PRN ORAL For Cough 02/20/17 21:30 03/22/17 21:29 Pyridoxine HCl (Vitamin B6) 50 mg DAILY ORAL 02/21/17 09:00 03/23/17 08:59 02/22/17 08:30 Temazepam 15 mg 15 mg HSPRN PRN ORAL Insomnia 02/20/17 21:30 02/27/17 21:29 KASANDRA MILLER Feb 22, 2017 12:09
--- NOTE | 2017-02-22 15:05 | Diagnostic Imaging Report ---
Indications: Pleural effusion Technique: Ultrasound used to localize optimal puncture site. Sterile prepping and draping chest. Local anesthesia with 1% lidocaine. Under real-time ultrasound guidance, puncture pleural space using thoracentesis needle. Stylet removed. Catheter placed to vacuum bottle suction. Total 960 milliliters of clear yellow fluid aspirated. Patient tolerated procedure well, without immediate complication. Findings: Followup sonography demonstrates near-complete resolution of pleural fluid. Impression: Successful ultrasound-guided thoracentesis, yielding 960 milliliters of fluid
--- NOTE | 2017-02-22 15:45 | Diagnostic Imaging Report ---
Indication: Status post thoracentesis Technique: One view of the chest Comparison: 5 hours earlier Findings: Interim decrease in left-sided pleural effusion, post thoracentesis. No gross pneumothorax is demonstrated. Right-sided pleural effusion, bilateral pulmonary parenchymal nodules, right arm PICC all remain. Interstitial congestive changes persist Impression: Decreased left-sided pleural effusion, post thoracentesis. No radiographically evident complication Other stable findings as described
[2017-02-22 16:00] VITALS: BP 136/113
--- NOTE | 2017-02-22 16:06 | Wound Care Consultation ---
Wound Assessment Wound Assessment : Wound Present on Admission: Yes New Wound: No Status Change of Wound: No Wound Location Body Site Modif: mid Wound Location Body Site: sacral Wound Type: pressure ulcer Caitie Test: Does not Caitie Pressure Ulcer Stage: deep tissue injury Wound Thickness: Full Thickness Wound Length: 5.0 Wound Width: 4.0 Wound Depth: utd Percent of Wound Purple/Maroon: 100 Wound Drainage Amount: None Wound Drainage Odor: None/Absent Tissue Surrounding Wound: Erythemic Wound General Appearance: Reddened Wound Comment #1 Sacral DTI pressure ulcer Recommendation -Sacral area DTI Cleanse with saline pat dry apply Triad cream leave area open to air. -Turn and reposition -Keep clean dry -Low air loss overlay mattress -Optimize nutrition -Heel protector -Assess and f/u accordingly for any changes PALMER BURKETT RN Feb 22, 2017 16:06
[2017-02-22] MEDS ORDERED: Warfarin Sodium 3mg ORAL ONE (17:00)
[2017-02-22] MEDS ORDERED: Tubing IV Secondary IV ONE (18:17)
[2017-02-22] MEDS ORDERED: NS 275ml ONE (18:17)
[2017-02-22 19:44] LABS: APPEARANCE, BODY FLUID HAZY; BD FL SOURCE PLEURAL; BD FL VOLUME 24 mL; BODY FLUID NUCLEATED CELLS 32 /CUMM; BODY FLUID RBC 123 /CUMM; MONONUCLEAR WBC 89 %; POLYMORPHONUCLEAR WBC 6 %
[2017-02-22 20:00] VITALS: BP 112/95
[2017-02-22] MEDS ORDERED: Enoxaparin 60mg Inj SUBQ SCH (21:00)
[2017-02-23 00:06] VITALS: BP 152/62
[2017-02-23 04:08] VITALS: BP 126/99
--- NOTE | 2017-02-23 07:46 | Infectious Diseases Prog Note ---
Assessment/Plan Assessment/Plan A: The patient is a 77-year-old female with Pneumonia UCx : GNR ( colonizer ) Mild leukocytosis, SP Pl effusion SP ultrasound-guided thoracentesis, yielding 960 cc ( no evidence of empyema ) 02/[address]: Multiple lung masses compatible with metastatic neoplasm , Liver Mass, BL Renal Masses w Mild [place] , Bilateral adrenal masses Bilateral lower extremity edema x1 week rule out possibility of DVT History of PE. HTN History of lung cancer. Diabetes PLAN: Cont on IV Levaquin d# 3 / 5 Monitor CBC. Monitor BMP. Monitor cultures (blood, sputum, and urine). Monitor chest x-ray result Urine Legionella antigen : pending Subjective Constitutional: Denies: anorexia, chills, drenching sweats, fatigue, fever, no symptoms, other Allergies: Coded Allergies: IODINE (Verified Allergy, Mild, 10/11/11) PENICILLIN G (Verified Allergy, Mild, 10/11/11) SULFA (SULFONAMIDE ANTIBIOTICS) (Verified Allergy, Mild, 10/11/11) PENICILLINS (Unverified Allergy, Unknown, 02/20/17) Objective Vital Signs Last 24 Hour Vital Signs Date Time Temp Pulse Resp B/P Pulse Ox O2 Delivery O2 Flow Rate FiO2 02/23/17 04:08 98.3 77 17 126/99 99 Room Air 02/23/17 04:00 71 02/23/17 00:06 98.4 82 18 152/62 97 Room Air 02/23/17 00:00 79 02/22/17 20:00 97.6 75 20 112/95 98 Room Air 02/22/17 20:00 75 02/22/17 16:00 72 02/22/17 16:00 97.9 80 21 136/113 96 Room Air 02/22/17 12:00 96.9 83 20 124/58 98 Room Air 02/22/17 10:25 96.8 02/22/17 08:00 87 Height (Feet): 5 Height (Inches): 0.00 Weight (Pounds): 120 HEENT: anicteric Respiratory/Chest: lungs clear Cardiovascular: regular rhythm Abdomen: non distended Microbiology Date/Time Source Procedure Growth Status 02/20/17 18:15 Blood Blood Culture - Preliminary NO GROWTH AFTER 48 HOURS Resulted 02/20/17 18:00 Blood Blood Culture - Preliminary NO GROWTH AFTER 48 HOURS Resulted 02/20/17 20:50 Urine,Clean Catch Urine Culture - Final Pseudomonas Aeruginosa Complete Laboratory Tests Test 02/22/17 14:00 Body Fluid Source Pleural Body Fluid Volume 24 mL Body Fluid Appearance Hazy Body Fluid RBC 123 /CUMM Body Fluid Total Nucleated Cells 32 /CUMM Body Fluid Polynuclear WBCs (%) 6 % Body Fluid Mononuclear WBCs (%) 89 % Body Fluid Mesothelial Cells (%) 5 % Body Fluid Glucose Pending Body Fluid Total Protein Pending Body Fluid Albumin Pending Current Medications Medications (Trade) Dose Ordered Sig/Calvin Route PRN Reason Start Time Stop Time Status Last Admin Dose Admin Acetaminophen (Tylenol) 650 mg Q4H PRN ORAL fever 02/20/17 21:30 03/22/17 21:29 02/22/17 09:19 Al Hydroxide/Mg Hydroxide (Mylanta II) 30 ml Q6H PRN ORAL dyspepsia 02/20/17 21:30 03/22/17 21:29 Albuterol/ Ipratropium (DuoNeb 0.5-3(2.5)mg/3ml) 3 ml Q4H PRN HHN Shortness of Breath 02/20/17 21:30 02/25/17 21:29 Dronabinol (Marinol) 2.5 mg DAILY ORAL 02/21/17 16:00 03/23/17 15:59 02/22/17 08:30 Enoxaparin Sodium (Lovenox) 60 mg Q24H SUBQ 02/22/17 21:00 03/24/17 20:59 02/22/17 20:38 Levofloxacin (Levaquin) 50 ml @ 50 mls/hr Q24H IVPB 02/21/17 20:00 02/28/17 19:59 02/22/17 20:26 Nitroglycerin (Ntg) 0.4 mg Q5MIN X 3 DOSES PRN SL Prn Chest Pain 02/20/17 21:30 03/22/17 21:29 Ondansetron HCl (Zofran) 4 mg Q6H PRN IVP Nausea & Vomiting 02/20/17 21:30 03/22/17 21:29 Polyethylene Glycol (Miralax) 17 gm DAILYPRN PRN ORAL Constipation 02/20/17 21:30 03/22/17 21:29 Promethazine HCl/ Codeine (Phenergan with Codeine) 5 ml Q4H PRN ORAL For Cough 02/20/17 21:30 03/22/17 21:29 Pyridoxine HCl (Vitamin B6) 50 mg DAILY ORAL 02/21/17 09:00 03/23/17 08:59 02/22/17 08:30 Temazepam 15 mg 15 mg HSPRN PRN ORAL Insomnia 02/20/17 21:30 02/27/17 21:29 Warfarin Sodium (Coumadin per pharmacy) 1 ea DAILY PRN MISC Per rx protocol 02/22/17 12:15 03/24/17 12:14 ANDIE MOREL M.D. Feb 23, 2017 07:46
[2017-02-23 08:00] VITALS: BP 144/92
[2017-02-23] MEDS: Pyridoxine 50mg tab ORAL SCH (08:34)
[2017-02-23] MEDS: Dronabinol 2.5mg Cap ORAL SCH (08:34)
[2017-02-23 10:35] LABS: INR 1.1 (0.9-1.1); PROTHROMBIN TIME 11.2 SEC (9.30-11.50)
[2017-02-23 12:00] VITALS: BP 128/77
--- NOTE | 2017-02-23 12:33 | Pulmonology Progress Note ---
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 (4) Pleural effusion (5) four point physiologic quadroplegia (6) Diabetes (7) Obstructive uropathy Assessment/Plan thoracentesis done at left we do the other side tomorrow IV heparin for dvt will need [facility] coumadine cxr reviewed post thoracentesis, total resolution of Left sided pleural effusion Subjective ROS Limited/Unobtainable: No Constitutional: Reports: no symptoms HEENT: Repors: no symptoms Respiratory: Reports: no symptoms Allergies: Coded Allergies: IODINE (Verified Allergy, Mild, 10/11/11) PENICILLIN G (Verified Allergy, Mild, 10/11/11) SULFA (SULFONAMIDE ANTIBIOTICS) (Verified Allergy, Mild, 10/11/11) PENICILLINS (Unverified Allergy, Unknown, 02/20/17) Objective Last 24 Hour Vital Signs Date Time Temp Pulse Resp B/P Pulse Ox O2 Delivery O2 Flow Rate FiO2 02/23/17 08:00 72 02/23/17 08:00 95.5 75 18 144/92 97 Room Air 02/23/17 04:08 98.3 77 17 126/99 99 Room Air 02/23/17 04:00 71 02/23/17 00:06 98.4 82 18 152/62 97 Room Air 02/23/17 00:00 79 02/22/17 20:00 97.6 75 20 112/95 98 Room Air 02/22/17 20:00 75 02/22/17 16:00 72 02/22/17 16:00 97.9 80 21 136/113 96 Room Air Intake and Output 02/22/17 02/23/17 19:00 07:00 Intake Total 165.723 ml Output Total 125 ml 500 ml Balance 40.723 ml -500 ml Intake Oral 120 ml IV Total 45.723 ml Output Urine Total 125 ml 500 ml General Appearance: cachetic HEENT: normocephalic Respiratory/Chest: chest wall non-tender, lungs clear, decreased breath sounds Cardiovascular: normal peripheral pulses, normal rate Abdomen: normal bowel sounds, soft, non tender Extremities: no cyanosis, no clubbing Neurologic/Psychiatric: fourth hand II-XII grossly normal, no motor/sensory deficits Lymphatic: no neck adenopathy Microbiology Date/Time Source Procedure Growth Status 02/20/17 18:15 Blood Blood Culture - Preliminary NO GROWTH AFTER 48 HOURS Resulted 02/20/17 18:00 Blood Blood Culture - Preliminary NO GROWTH AFTER 48 HOURS Resulted 02/22/17 14:00 Pleural Fluid Gram Stain Pending Resulted 02/22/17 14:00 Pleural Fluid Body Fluid Culture - Preliminary NO GROWTH AFTER 24 HOURS Resulted 02/20/17 20:50 Nasal Nares MRSA Culture - Final NO METHICILLIN RESISTANT STAPH AUREUS... Complete 02/20/17 20:50 Urine,Clean Catch Urine Culture - Final Pseudomonas Aeruginosa Complete 02/20/17 20:50 Rectum VRE Culture - Final NO VANCOMYCIN RESISTANT ENTEROCOCCUS ... Complete Laboratory Tests 02/22/17 14:00: Body Fluid Source Pleural, Body Fluid Volume 24, Body Fluid Appearance Hazy, Body Fluid RBC 123, Body Fluid Total Nucleated Cells 32, Body Fluid Polynuclear WBCs (%) 6, Body Fluid Mononuclear WBCs (%) 89, Body Fluid Mesothelial Cells (% ) 5, Body Fluid Glucose [Pending], Body Fluid Total Protein [Pending], Body Fluid Albumin [Pending] 02/23/17 10:20: Prothrombin Time 11.2, Prothromb Time International Ratio 1.1 Current Medications Medications (Trade) Dose Ordered Sig/Calvin Route PRN Reason Start Time Stop Time Status Last Admin Dose Admin Acetaminophen (Tylenol) 650 mg Q4H PRN ORAL fever 02/20/17 21:30 03/22/17 21:29 02/22/17 09:19 Al Hydroxide/Mg Hydroxide (Mylanta II) 30 ml Q6H PRN ORAL dyspepsia 02/20/17 21:30 03/22/17 21:29 Albuterol/ Ipratropium (DuoNeb 0.5-3(2.5)mg/3ml) 3 ml Q4H PRN HHN Shortness of Breath 02/20/17 21:30 02/25/17 21:29 Dronabinol (Marinol) 2.5 mg DAILY ORAL 02/21/17 16:00 03/23/17 15:59 02/23/17 08:34 Enoxaparin Sodium (Lovenox) 60 mg Q24H SUBQ 02/22/17 21:00 03/24/17 20:59 02/22/17 20:38 Levofloxacin (Levaquin) 250 mg QHS ORAL 02/23/17 21:00 02/28/17 20:59 Nitroglycerin (Ntg) 0.4 mg Q5MIN X 3 DOSES PRN SL Prn Chest Pain 02/20/17 21:30 03/22/17 21:29 Ondansetron HCl (Zofran) 4 mg Q6H PRN IVP Nausea & Vomiting 02/20/17 21:30 03/22/17 21:29 Polyethylene Glycol (Miralax) 17 gm DAILYPRN PRN ORAL Constipation 02/20/17 21:30 03/22/17 21:29 Promethazine HCl/ Codeine (Phenergan with Codeine) 5 ml Q4H PRN ORAL For Cough 02/20/17 21:30 03/22/17 21:29 Pyridoxine HCl (Vitamin B6) 50 mg DAILY ORAL 02/21/17 09:00 03/23/17 08:59 02/23/17 08:34 Temazepam (Restoril) 15 mg HSPRN PRN ORAL Insomnia 02/20/17 21:30 02/27/17 21:29 Warfarin Sodium (Coumadin per pharmacy) 1 ea DAILY PRN MISC Per rx protocol 02/22/17 12:15 03/24/17 12:14 Warfarin Sodium (Coumadin) 4 mg COUMADIN ONCE PO 02/23/17 17:00 02/23/17 17:01 KASANDRA MILLER Feb 23, 2017 12:33
[2017-02-23 13:06] LABS: COMMENT,BODY FLUID PATHOLOGIST COMMENT
[2017-02-23 16:00] VITALS: BP 139/88
[2017-02-23] MEDS ORDERED: D5 1/2NS 1000ml IV ONE (16:50)
[2017-02-23] MEDS ORDERED: Warfarin Sodium 4mg PO ONE (17:00)
[2017-02-23 20:00] VITALS: BP 95/66
[2017-02-24 00:07] VITALS: BP 94/66
[2017-02-24 03:52] VITALS: BP 92/58
--- NOTE | 2017-02-24 06:43 | Infectious Diseases Prog Note ---
Assessment/Plan Assessment/Plan A: The patient is a 77-year-old female with Pneumonia SP thoracentesis ( left) UCx : PSA ( colonizer ) Mild leukocytosis, SP Wnd cx :P Pl effusion SP ultrasound-guided thoracentesis, yielding 960 cc ( no evidence of empyema ) 02/[address]: Multiple lung masses compatible with metastatic neoplasm , Liver Mass, BL Renal Masses w Mild [place] , Bilateral adrenal masses Bilateral lower extremity edema x1 week rule out possibility of DVT History of PE. HTN History of lung cancer. Diabetes PLAN: Cont on IV Levaquin d# 4 / 5 Monitor CBC. Monitor BMP. Monitor cultures (blood ) Monitor chest x-ray result Urine Legionella antigen : pending thoracentesis ( Rt ) today Subjective Constitutional: Denies: anorexia, chills, drenching sweats, fatigue, fever, no symptoms, other Allergies: Coded Allergies: IODINE (Verified Allergy, Mild, 10/11/11) PENICILLIN G (Verified Allergy, Mild, 10/11/11) SULFA (SULFONAMIDE ANTIBIOTICS) (Verified Allergy, Mild, 10/11/11) PENICILLINS (Unverified Allergy, Unknown, 02/20/17) Objective Vital Signs Last 24 Hour Vital Signs Date Time Temp Pulse Resp B/P Pulse Ox O2 Delivery O2 Flow Rate FiO2 02/24/17 04:00 77 02/24/17 03:52 98.2 81 17 92/58 95 Room Air 02/24/17 00:07 97.8 77 18 94/66 97 Room Air 02/24/17 00:00 76 02/23/17 20:00 76 02/23/17 20:00 97.7 80 21 95/66 96 Room Air 02/23/17 16:00 82 02/23/17 16:00 97.5 77 20 139/88 96 Room Air 02/23/17 12:00 72 02/23/17 12:00 95.5 74 17 128/77 96 Room Air 78 02/23/17 08:00 72 02/23/17 08:00 95.5 75 18 144/92 97 Room Air Height (Feet): 5 Height (Inches): 0.00 Weight (Pounds): 120 HEENT: atraumatic Respiratory/Chest: no respiratory distress Cardiovascular: regularly irregular Abdomen: soft, non tender Microbiology Date/Time Source Procedure Growth Status 02/22/17 14:00 Pleural Fluid Gram Stain - Final Resulted 02/22/17 14:00 Pleural Fluid Body Fluid Culture - Preliminary NO GROWTH AFTER 24 HOURS Resulted 02/22/17 20:00 Thigh Left Gram Stain - Final Resulted 02/22/17 20:00 Thigh Left Wound Culture Pending Resulted Laboratory Tests Test 02/23/17 10:20 Prothrombin Time 11.2 SEC (9.30-11.50) Prothromb Time International Ratio 1.1 (0.9-1.1) Activated Partial Thromboplast Time 39 SEC (23-33) H Current Medications Medications (Trade) Dose Ordered Sig/Calvin Route PRN Reason Start Time Stop Time Status Last Admin Dose Admin Acetaminophen (Tylenol) 650 mg Q4H PRN ORAL Mild Pain/Temp > 100.5 02/24/17 01:30 03/26/17 01:29 02/24/17 01:38 Al Hydroxide/Mg Hydroxide (Mylanta II) 30 ml Q6H PRN ORAL dyspepsia 02/20/17 21:30 03/22/17 21:29 Albuterol/ Ipratropium (DuoNeb 0.5-3(2.5)mg/3ml) 3 ml Q4H PRN HHN Shortness of Breath 02/20/17 21:30 02/25/17 21:29 Dronabinol (Marinol) 2.5 mg DAILY ORAL 02/21/17 16:00 03/23/17 15:59 02/23/17 08:34 Levofloxacin (Levaquin) 250 mg QHS ORAL 02/23/17 21:00 02/28/17 20:59 02/23/17 21:30 Nitroglycerin (Ntg) 0.4 mg Q5MIN X 3 DOSES PRN SL Prn Chest Pain 02/20/17 21:30 03/22/17 21:29 Ondansetron HCl (Zofran) 4 mg Q6H PRN IVP Nausea & Vomiting 02/20/17 21:30 03/22/17 21:29 Polyethylene Glycol (Miralax) 17 gm DAILYPRN PRN ORAL Constipation 02/20/17 21:30 03/22/17 21:29 Promethazine HCl/ Codeine (Phenergan with Codeine) 5 ml Q4H PRN ORAL For Cough 02/20/17 21:30 03/22/17 21:29 Pyridoxine HCl (Vitamin B6) 50 mg DAILY ORAL 02/21/17 09:00 03/23/17 08:59 02/23/17 08:34 Temazepam (Restoril) 15 mg HSPRN PRN ORAL Insomnia 02/20/17 21:30 02/27/17 21:29 Warfarin Sodium (Coumadin per pharmacy) 1 ea DAILY PRN MISC Per rx protocol 02/22/17 12:15 03/24/17 12:14 ANDIE MOREL M.D. Feb 24, 2017 06:43
[2017-02-24 07:50] LABS: INR 1.1 (0.9-1.1); PROTHROMBIN TIME 11.3 SEC (9.30-11.50)
[2017-02-24 08:00] VITALS: BP 133/95
[2017-02-24] MEDS: Dronabinol 2.5mg Cap ORAL SCH (08:51)
[2017-02-24] MEDS: Pyridoxine 50mg tab ORAL SCH (08:51)
[2017-02-24] MEDS ORDERED: Morphine Sulfate 2mg/ml Inj IVP PRN (09:00)
[2017-02-24] MEDS: Morphine Sulfate 2mg/ml Inj IVP PRN (10:08)
[2017-02-24 12:05] VITALS: BP 132/86
[2017-02-24 13:43] LABS: PROTEIN, BODY FLUID 2.9 g/dL (.)
--- NOTE | 2017-02-24 13:47 | Pulmonology Progress Note ---
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 (4) Pleural effusion (5) four point physiologic quadroplegia (6) Diabetes (7) Obstructive uropathy Assessment/Plan thoracentesis done at left, right side for today abx for pneumonia half-way anticoagulation Subjective ROS Limited/Unobtainable: Yes Interval Events: comfortable Allergies: Coded Allergies: IODINE (Verified Allergy, Mild, 10/11/11) PENICILLIN G (Verified Allergy, Mild, 10/11/11) SULFA (SULFONAMIDE ANTIBIOTICS) (Verified Allergy, Mild, 10/11/11) PENICILLINS (Unverified Allergy, Unknown, 02/20/17) Objective Last 24 Hour Vital Signs Date Time Temp Pulse Resp B/P Pulse Ox O2 Delivery O2 Flow Rate FiO2 02/24/17 12:05 95.9 80 17 132/86 95 Room Air 82 02/24/17 12:00 79 02/24/17 08:00 95.9 79 17 133/95 95 50 02/24/17 08:00 75 02/24/17 04:00 77 02/24/17 03:52 98.2 81 17 92/58 95 Room Air 02/24/17 00:07 97.8 77 18 94/66 97 Room Air 02/24/17 00:00 76 02/23/17 20:00 76 02/23/17 20:00 97.7 80 21 95/66 96 Room Air 02/23/17 16:00 82 02/23/17 16:00 97.5 77 20 139/88 96 Room Air Intake and Output 02/23/17 02/24/17 19:00 07:00 Intake Total 460 ml 120 ml Output Total 100 ml 700 ml Balance 360 ml -580 ml Intake Oral 460 ml 120 ml Output Urine Total 100 ml 700 ml General Appearance: cachetic HEENT: normocephalic, atraumatic Breasts: no masses Cardiovascular: normal peripheral pulses Abdomen: normal bowel sounds, soft, non tender Genitourinary: normal external genitalia Extremities: no cyanosis, no clubbing Microbiology Date/Time Source Procedure Growth Status 02/22/17 14:00 Pleural Fluid Gram Stain - Final Resulted 02/22/17 14:00 Pleural Fluid Body Fluid Culture - Preliminary NO GROWTH AFTER 48 HOURS Resulted 02/22/17 20:00 Thigh Left Gram Stain - Final Resulted 02/22/17 20:00 Thigh Left Wound Culture - Preliminary NO GROWTH AFTER 24 HOURS Resulted Laboratory Tests 02/24/17 07:30: Prothrombin Time 11.3, Prothromb Time International Ratio 1.1, Activated Partial Thromboplast Time 37H Current Medications Medications (Trade) Dose Ordered Sig/Calvin Route PRN Reason Start Time Stop Time Status Last Admin Dose Admin Acetaminophen (Tylenol) 650 mg Q4H PRN ORAL Mild Pain/Temp > 100.5 02/24/17 01:30 03/26/17 01:29 02/24/17 01:38 Al Hydroxide/Mg Hydroxide (Mylanta II) 30 ml Q6H PRN ORAL dyspepsia 02/20/17 21:30 03/22/17 21:29 Albuterol/ Ipratropium (DuoNeb 0.5-3(2.5)mg/3ml) 3 ml Q4H PRN HHN Shortness of Breath 02/20/17 21:30 02/25/17 21:29 Dronabinol (Marinol) 2.5 mg DAILY ORAL 02/21/17 16:00 03/23/17 15:59 02/24/17 08:51 Levofloxacin (Levaquin) 250 mg QHS ORAL 02/23/17 21:00 02/28/17 20:59 02/23/17 21:30 Morphine Sulfate (Morphine Sulfate) 2 mg Q4H PRN IVP Severe Pain (Pain Scale 7-10) 02/24/17 10:00 03/03/17 09:59 02/24/17 10:08 Nitroglycerin (Ntg) 0.4 mg Q5MIN X 3 DOSES PRN SL Prn Chest Pain 02/20/17 21:30 03/22/17 21:29 Ondansetron HCl (Zofran) 4 mg Q6H PRN IVP Nausea & Vomiting 02/20/17 21:30 03/22/17 21:29 Polyethylene Glycol (Miralax) 17 gm DAILYPRN PRN ORAL Constipation 02/20/17 21:30 03/22/17 21:29 Promethazine HCl/ Codeine (Phenergan with Codeine) 5 ml Q4H PRN ORAL For Cough 02/20/17 21:30 03/22/17 21:29 Pyridoxine HCl (Vitamin B6) 50 mg DAILY ORAL 02/21/17 09:00 03/23/17 08:59 02/24/17 08:51 Temazepam (Restoril) 15 mg HSPRN PRN ORAL Insomnia 02/20/17 21:30 02/27/17 21:29 Warfarin Sodium (Coumadin per pharmacy) 1 ea DAILY PRN MISC Per rx protocol 02/22/17 12:15 03/24/17 12:14 KASANDRA MILLER Feb 24, 2017 13:47
--- NOTE | 2017-02-24 14:46 | Diagnostic Imaging Report ---
Indication: Status post thoracentesis Comparison: None A single view chest radiograph was obtained. Findings: No pneumothorax demonstrated following thoracentesis which was performed on the right side. Intravenous catheter noted in the SVC. Heart size is stable. Nodular opacities noted throughout the lungs bilaterally. Impression: No pneumothorax
--- NOTE | 2017-02-24 15:18 | Diagnostic Imaging Report ---
Indications: Pleural effusion Technique: Ultrasound used to localize optimal puncture site. Sterile prepping and draping of the right lower chest performed. Local anesthesia with 1% lidocaine. Dermatotomy made. Puncture of the pleural space using thoracentesis needle. Stylet removed. Catheter placed to vacuum bottle suction. Fluid was aspirated. Patient tolerated procedure well, without immediate complication. Findings: Followup sonography demonstrates complete resolution of pleural fluid. Followup chest x-ray is pending. Impression: Successful ultrasound-guided right thoracentesis, yielding 1.1 liters of fluid
[2017-02-24 16:00] VITALS: BP 105/89
[2017-02-24 20:00] VITALS: BP 91/58
[2017-02-25] VITALS: BP 104/86
[2017-02-25 04:30] VITALS: BP 123/75
[2017-02-25 08:00] VITALS: BP 91/75
[2017-02-25 08:20] LABS: INR 1.1 (0.9-1.1); PROTHROMBIN TIME 11.1 SEC (9.30-11.50)
[2017-02-25] MEDS: Dronabinol 2.5mg Cap ORAL SCH (08:45)
[2017-02-25] MEDS: Pyridoxine 50mg tab ORAL SCH (08:46)
[2017-02-25] MEDS: Enoxaparin 60mg Inj SUBQ SCH (08:47)
[2017-02-25 12:00] VITALS: BP 55/40
[2017-02-25] MEDS: Morphine Sulfate 2mg/ml Inj IVP PRN (15:05)
--- NOTE | 2017-02-25 15:44 | Pulmonology Progress Note ---
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 possible HCAP UTI/ Pseudomonas acute DVT LLE HTN DM Hx of PE obstructive uropathy dysphagia functional quadriplegia sacral area DTI PLAN OF CARE tele leukocytosis resolved IV bolus x 1 now s/p bilateral tap Lt-960 cc and Rt- 1100 cc pathology negative for malignant cells CXR with resolution pleural effusion , no penumothrorax CT chest with Multiple lung masses c/w metastatic neoplasm , Liver Mass, BL Renal Masses w Mild [place] , Bilateral adrenal masses O2 HHN prn ID follows abx, urine cx + Pseudomonas, blood cx -negative pleural fluid culture - negative ( no empyema) antitussive prn Venous Duplex revealed acute thrombus LLE CFV, RLE chronic thrombus s/p heparin, on Lovenox and Coumadin, to bridge to therapeutic INR in range 2 -3 s/p IVF x1 L, no change in renal parameters, swallow eval with evidence of mild to moderate dysphagia, ST recommended VSS and ST Rx strict aspiration precautions, diet as per quality of life DVT prophylaxis bowel regimen pain management case discussed and evaluated by supervising physician Subjective Allergies: Coded Allergies: IODINE (Verified Allergy, Mild, 10/11/11) PENICILLIN G (Verified Allergy, Mild, 10/11/11) SULFA (SULFONAMIDE ANTIBIOTICS) (Verified Allergy, Mild, 10/11/11) PENICILLINS (Unverified Allergy, Unknown, 02/20/17) Subjective leukocytosis resolved , afebrile, no signs of respiratory distress low BP Objective Last 24 Hour Vital Signs Date Time Temp Pulse Resp B/P Pulse Ox O2 Delivery O2 Flow Rate FiO2 02/25/17 12:00 97.2 68 18 55/40 90 Room Air 02/25/17 08:00 96.6 94 16 91/75 96 Room Air 02/25/17 08:00 73 02/25/17 04:30 96.0 65 20 123/75 95 Room Air 02/25/17 04:00 81 02/25/17 00:00 76 02/25/17 00:00 97.0 72 20 104/86 99 Room Air 02/25/17 00:00 97.0 96 20 99 Room Air 02/24/17 20:00 97.1 84 18 91/58 92 Room Air 02/24/17 20:00 80 02/24/17 16:00 73 02/24/17 16:00 97.0 78 20 105/89 98 Room Air Intake and Output 02/24/17 02/25/17 19:00 07:00 Intake Total 120 ml 100 ml Output Total 425 ml 300 ml Balance -305 ml -200 ml Intake Oral 120 ml 100 ml Output Urine Total 425 ml 300 ml General Appearance: no acute distress HEENT: normocephalic, atraumatic Respiratory/Chest: decreased breath sounds, crackles/rales - few bibasilar scattered crcakles Cardiovascular: normal rate, regular rhythm Abdomen: soft, non tender Neurologic/Psychiatric: abnormal gait Musculoskeletal: atrophy - BLE Microbiology Date/Time Source Procedure Growth Status 02/22/17 20:00 Thigh Left Gram Stain - Final Resulted 02/22/17 20:00 Thigh Left Wound Culture - Preliminary NO GROWTH AFTER 48 HOURS Resulted Laboratory Tests 02/25/17 07:55: Prothrombin Time 11.1, Prothromb Time International Ratio 1.1 Current Medications Medications (Trade) Dose Ordered Sig/Calvin Route PRN Reason Start Time Stop Time Status Last Admin Dose Admin Acetaminophen (Tylenol) 650 mg Q4H PRN ORAL Mild Pain/Temp > 100.5 02/24/17 01:30 03/26/17 01:29 02/24/17 01:38 Al Hydroxide/Mg Hydroxide (Mylanta II) 30 ml Q6H PRN ORAL dyspepsia 02/20/17 21:30 03/22/17 21:29 Albuterol/ Ipratropium (DuoNeb 0.5-3(2.5)mg/3ml) 3 ml Q4H PRN HHN Shortness of Breath 02/20/17 21:30 02/25/17 21:29 Dronabinol (Marinol) 2.5 mg DAILY ORAL 02/21/17 16:00 03/23/17 15:59 02/25/17 08:45 Enoxaparin Sodium (Lovenox) 60 mg DAILY SUBQ 02/25/17 09:00 03/27/17 08:59 02/25/17 08:47 Levofloxacin (Levaquin) 250 mg QHS ORAL 02/23/17 21:00 02/28/17 20:59 02/24/17 22:14 Morphine Sulfate (Morphine Sulfate) 2 mg Q4H PRN IVP Severe Pain (Pain Scale 7-10) 02/24/17 10:00 03/03/17 09:59 02/25/17 15:05 Nitroglycerin (Ntg) 0.4 mg Q5MIN X 3 DOSES PRN SL Prn Chest Pain 02/20/17 21:30 03/22/17 21:29 Ondansetron HCl (Zofran) 4 mg Q6H PRN IVP Nausea & Vomiting 02/20/17 21:30 03/22/17 21:29 Polyethylene Glycol (Miralax) 17 gm DAILYPRN PRN ORAL Constipation 02/20/17 21:30 03/22/17 21:29 Promethazine HCl/ Codeine (Phenergan with Codeine) 5 ml Q4H PRN ORAL For Cough 02/20/17 21:30 03/22/17 21:29 Pyridoxine HCl (Vitamin B6) 50 mg DAILY ORAL 02/21/17 09:00 03/23/17 08:59 02/25/17 08:46 Temazepam (Restoril) 15 mg HSPRN PRN ORAL Insomnia 02/20/17 21:30 02/27/17 21:29 Warfarin Sodium (Coumadin per pharmacy) 1 ea DAILY PRN MISC Per rx protocol 02/24/17 15:00 03/26/17 23:59 Warfarin Sodium (Coumadin) 5 mg COUMADIN ONCE ORAL 02/25/17 17:00 02/25/17 17:01 Aman MiguelBeverley sanchez NP Feb 25, 2017 15:44
[2017-02-25 16:00] VITALS: BP 83/46
[2017-02-25] MEDS ORDERED: Warfarin Sodium 5mg ORAL ONE (17:00)
[2017-02-25 19:00] VITALS: BP 87/49
[2017-02-26] VITALS: BP 127/69
[2017-02-26 04:00] VITALS: BP 108/64
[2017-02-26 07:55] LABS: INR 1.1 (0.9-1.1); PROTHROMBIN TIME 11.4 SEC (9.30-11.50)
[2017-02-26 08:00] VITALS: BP 145/57
[2017-02-26] MEDS: Dronabinol 2.5mg Cap ORAL SCH (08:13)
[2017-02-26] MEDS: Pyridoxine 50mg tab ORAL SCH (08:13)
[2017-02-26] MEDS: Enoxaparin 60mg Inj SUBQ SCH (08:14)
--- NOTE | 2017-02-26 08:14 | Infectious Diseases Prog Note ---
Assessment/Plan Assessment/Plan A; Pneumonia s/p Rx Pleural effusion Pseudomonas UTI s/p RX Metastatic lung cancer Anemia P: Discontinue Levaquin Subjective ROS Limited/Unobtainable: Yes Allergies: Coded Allergies: IODINE (Verified Allergy, Mild, 10/11/11) PENICILLIN G (Verified Allergy, Mild, 10/11/11) SULFA (SULFONAMIDE ANTIBIOTICS) (Verified Allergy, Mild, 10/11/11) PENICILLINS (Unverified Allergy, Unknown, 02/20/17) Objective Vital Signs Last 24 Hour Vital Signs Date Time Temp Pulse Resp B/P Pulse Ox O2 Delivery O2 Flow Rate FiO2 02/26/17 04:00 97.5 68 16 108/64 95 Room Air 02/26/17 04:00 84 02/26/17 00:00 97.0 85 16 127/69 97 02/26/17 00:00 76 02/25/17 20:00 68 02/25/17 19:00 97.3 74 18 87/49 96 Room Air 02/25/17 16:00 78 02/25/17 16:00 96.0 76 18 83/46 94 Room Air 02/25/17 15:35 96.0 02/25/17 12:00 97.2 68 18 55/40 90 Room Air 02/25/17 12:00 79 Height (Feet): 5 Height (Inches): 0.00 Weight (Pounds): 120 General Appearance: no acute distress HEENT: normocephalic Respiratory/Chest: decreased breath sounds Cardiovascular: normal rate Abdomen: soft, non tender Extremities: no edema Neurologic/Psychiatric: other - sleeping Laboratory Tests Test 02/26/17 07:00 Prothrombin Time 11.4 SEC (9.30-11.50) Prothromb Time International Ratio 1.1 (0.9-1.1) Current Medications Medications (Trade) Dose Ordered Sig/Calvin Route PRN Reason Start Time Stop Time Status Last Admin Dose Admin Acetaminophen (Tylenol) 650 mg Q4H PRN ORAL Mild Pain/Temp > 100.5 02/24/17 01:30 03/26/17 01:29 02/24/17 01:38 Al Hydroxide/Mg Hydroxide (Mylanta II) 30 ml Q6H PRN ORAL dyspepsia 02/20/17 21:30 03/22/17 21:29 Dronabinol (Marinol) 2.5 mg DAILY ORAL 02/21/17 16:00 03/23/17 15:59 02/25/17 08:45 Enoxaparin Sodium (Lovenox) 60 mg DAILY SUBQ 02/25/17 09:00 03/27/17 08:59 02/25/17 08:47 Levofloxacin (Levaquin) 250 mg QHS ORAL 02/23/17 21:00 02/28/17 20:59 02/25/17 21:11 Morphine Sulfate (Morphine Sulfate) 2 mg Q4H PRN IVP Severe Pain (Pain Scale 7-10) 02/24/17 10:00 03/03/17 09:59 02/25/17 15:05 Nitroglycerin (Ntg) 0.4 mg Q5MIN X 3 DOSES PRN SL Prn Chest Pain 02/20/17 21:30 03/22/17 21:29 Ondansetron HCl (Zofran) 4 mg Q6H PRN IVP Nausea & Vomiting 02/20/17 21:30 03/22/17 21:29 Polyethylene Glycol (Miralax) 17 gm DAILYPRN PRN ORAL Constipation 02/20/17 21:30 03/22/17 21:29 02/25/17 22:57 Promethazine HCl/ Codeine (Phenergan with Codeine) 5 ml Q4H PRN ORAL For Cough 02/20/17 21:30 03/22/17 21:29 Pyridoxine HCl (Vitamin B6) 50 mg DAILY ORAL 02/21/17 09:00 03/23/17 08:59 02/25/17 08:46 Temazepam (Restoril) 15 mg HSPRN PRN ORAL Insomnia 02/20/17 21:30 02/27/17 21:29 Warfarin Sodium (Coumadin per pharmacy) 1 ea DAILY PRN MISC Per rx protocol 02/24/17 15:00 03/26/17 23:59 FESTUS HERNANDEZ Feb 26, 2017 08:14
[2017-02-26 12:00] VITALS: BP 149/74
--- NOTE | 2017-02-26 12:07 | Pulmonology Progress Note ---
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 possible HCAP UTI/ Pseudomonas acute DVT LLE HTN DM Hx of PE obstructive uropathy dysphagia functional quadriplegia sacral area DTI PLAN OF CARE tele leukocytosis resolved s/p IV bolus s/p bilateral tap Lt-960 cc and Rt- 1100 cc pathology negative for malignant cells CXR with resolution pleural effusion , no pneumothorax CT chest with Multiple lung masses c/w metastatic neoplasm , Liver Mass, BL Renal Masses w Mild [place] , Bilateral adrenal masses O2 HHN prn ID follows abx, urine cx + Pseudomonas, blood cx -negative pleural fluid culture - negative ( no empyema) antitussive prn Venous Duplex revealed acute thrombus LLE CFV, RLE chronic thrombus s/p heparin, on Lovenox and Coumadin, to bridge to therapeutic INR in range 2 -3 ( INR-1.1 subtherapeutic) s/p IVF x1 L, no change in renal parameters, swallow eval with evidence of mild to moderate dysphagia, ST recommended VSS and ST Rx strict aspiration precautions, diet as per quality of life DVT prophylaxis bowel regimen pain management wound care as per wound nurse recommendations transfer to DC case discussed and evaluated by supervising physician Subjective Allergies: Coded Allergies: IODINE (Verified Allergy, Mild, 10/11/11) PENICILLIN G (Verified Allergy, Mild, 10/11/11) SULFA (SULFONAMIDE ANTIBIOTICS) (Verified Allergy, Mild, 10/11/11) PENICILLINS (Unverified Allergy, Unknown, 02/20/17) Subjective leukocytosis resolved , afebrile, no signs of respiratory distress BP stable [id number] bolus last night Objective Last 24 Hour Vital Signs Date Time Temp Pulse Resp B/P Pulse Ox O2 Delivery O2 Flow Rate FiO2 02/26/17 08:00 82 02/26/17 04:00 97.5 68 16 108/64 95 Room Air 02/26/17 04:00 84 02/26/17 00:00 97.0 85 16 127/69 97 02/26/17 00:00 76 02/25/17 20:00 68 02/25/17 19:00 97.3 74 18 87/49 96 Room Air 02/25/17 16:00 78 02/25/17 16:00 96.0 76 18 83/46 94 Room Air 02/25/17 15:35 96.0 Intake and Output 02/25/17 02/26/17 19:00 07:00 Intake Total 360 ml Output Total 200 ml 600 ml Balance -200 ml -240 ml Intake Oral 360 ml Output Urine Total 200 ml 600 ml Objective General Appearance: no acute distress HEENT: normocephalic, atraumatic Respiratory/Chest: decreased breath sounds, crackles/rales - few bibasilar scattered crackles Cardiovascular: normal rate, regular rhythm Abdomen: soft, non tender Neurologic/Psychiatric: abnormal gait Musculoskeletal: atrophy - BLE Laboratory Tests 02/26/17 07:00: Prothrombin Time 11.4, Prothromb Time International Ratio 1.1 Current Medications Medications (Trade) Dose Ordered Sig/Calvin Route PRN Reason Start Time Stop Time Status Last Admin Dose Admin Acetaminophen (Tylenol) 650 mg Q4H PRN ORAL Mild Pain/Temp > 100.5 02/24/17 01:30 03/26/17 01:29 02/24/17 01:38 Al Hydroxide/Mg Hydroxide (Mylanta II) 30 ml Q6H PRN ORAL dyspepsia 02/20/17 21:30 03/22/17 21:29 Dronabinol (Marinol) 2.5 mg DAILY ORAL 02/21/17 16:00 03/23/17 15:59 02/26/17 08:13 Enoxaparin Sodium (Lovenox) 60 mg DAILY SUBQ 02/25/17 09:00 03/27/17 08:59 02/26/17 08:14 Morphine Sulfate (Morphine Sulfate) 2 mg Q4H PRN IVP Severe Pain (Pain Scale 7-10) 02/24/17 10:00 03/03/17 09:59 02/25/17 15:05 Nitroglycerin (Ntg) 0.4 mg Q5MIN X 3 DOSES PRN SL Prn Chest Pain 02/20/17 21:30 03/22/17 21:29 Ondansetron HCl (Zofran) 4 mg Q6H PRN IVP Nausea & Vomiting 02/20/17 21:30 03/22/17 21:29 Polyethylene Glycol (Miralax) 17 gm DAILYPRN PRN ORAL Constipation 02/20/17 21:30 03/22/17 21:29 02/25/17 22:57 Promethazine HCl/ Codeine (Phenergan with Codeine) 5 ml Q4H PRN ORAL For Cough 02/20/17 21:30 03/22/17 21:29 Pyridoxine HCl (Vitamin B6) 50 mg DAILY ORAL 02/21/17 09:00 03/23/17 08:59 02/26/17 08:13 Temazepam (Restoril) 15 mg HSPRN PRN ORAL Insomnia 02/20/17 21:30 02/27/17 21:29 Warfarin Sodium (Coumadin per pharmacy) 1 ea DAILY PRN MISC Per rx protocol 02/24/17 15:00 03/26/17 23:59 Warfarin Sodium (Coumadin) 5 mg COUMADIN ONCE ORAL 02/26/17 17:00 02/26/17 17:01 Aman ([facility])Beverley NP Feb 26, 2017 12:07
[2017-02-26 16:00] VITALS: BP 118/73
[2017-02-26] MEDS ORDERED: Warfarin Sodium 5mg ORAL ONE (17:00)
[2017-02-26 20:00] VITALS: BP 91/81
[2017-02-26] MEDS ORDERED: Nitroglycerin Subl 0.4mg tab (Bottle Of 25) SL PRN (22:30)
[2017-02-27] VITALS: BP 91/56
[2017-02-27] MEDS ORDERED: Promethazine/Codeine 5ml UD ORAL PRN (01:30)
[2017-02-27] MEDS ORDERED: Mylanta II UD 30ml ORAL PRN (03:30)
[2017-02-27 04:00] VITALS: BP 99/71
[2017-02-27 07:04] LABS: ANION GAP 19 (5-15); CALCIUM 8.9 mg/dL (8.6-10.2); CARBON DIOXIDE 14 mEQ/L (20-30); CHLORIDE 101 mEQ/L (98-107); CREATININE 1.1 mg/dL (0.5-0.9); HEMOLYSIS 46; POTASSIUM 4.2 mEQ/L (3.4-4.9); SODIUM 134 mEQ/L (135-145)
[2017-02-27 07:13] LABS: BASOPHILS % (AUTO) 1.2 % (0.0-2.0); EOSINOPHILS % (AUTO) 0.3 % (0.0-3.0); LYMPHOCYTES % (AUTO) 8.9 % (20.0-45.0); MEAN CORPUSCULAR HEMOGLOBIN 30.6 PG (27.0-31.0); MEAN CORPUSCULAR HGB CONC 31.8 G/DL (32.0-36.0); MEAN CORPUSCULAR VOLUME 96 FL (80-99); MEAN PLATELET VOLUME 6.3 FL (6.5-10.1); MONOCYTES % (AUTO) 8.5 % (1.0-10.0); NEUTROPHILS % (AUTO) 81.1 % (45.0-75.0); PLATELET COUNT 115 K/UL (150-450); RED CELL DISTRIBUTION WIDTH 14.4 % (11.6-14.8); WHITE BLOOD COUNT 5.9 K/UL (4.8-10.8)
[2017-02-27 08:00] VITALS: BP 92/73
[2017-02-27] MEDS: Pyridoxine 50mg tab ORAL SCH (09:00)
[2017-02-27] MEDS: Dronabinol 2.5mg Cap ORAL SCH (09:00)
[2017-02-27] MEDS ORDERED: Enoxaparin 60mg Inj SUBQ SCH (09:00)
[2017-02-27 09:12] LABS: INR 1.4 (0.9-1.1); PROTHROMBIN TIME 14.8 SEC (9.30-11.50)
--- NOTE | 2017-02-27 09:38 | Infectious Diseases Prog Note ---
Assessment/Plan Assessment/Plan A: The patient is a 77-year-old female with Pneumonia, SP Rx Urine Legionella antigen : Neg SP thoracentesis ( BL ) Neg for Empyema UCx : PSA ( colonizer ) Mild leukocytosis, SP Wnd cx :P Pl effusion SP ultrasound-guided thoracentesis, yielding 960 cc ( no evidence of empyema ) 02/[address]: Multiple lung masses compatible with metastatic neoplasm , Liver Mass, BL Renal Masses w Mild [place] , Bilateral adrenal masses Bilateral lower extremity edema x1 week rule out possibility of DVT History of PE. HTN History of lung cancer. Diabetes PLAN: Monitor pt off of AB Rx ( 02/25 SP Levaquin d# 5 Monitor CBC. Monitor BMP. Monitor chest x-ray result Subjective Constitutional: Denies: anorexia, chills, drenching sweats, fatigue, fever, no symptoms, other Allergies: Coded Allergies: IODINE (Verified Allergy, Mild, 10/11/11) PENICILLIN G (Verified Allergy, Mild, 10/11/11) SULFA (SULFONAMIDE ANTIBIOTICS) (Verified Allergy, Mild, 10/11/11) PENICILLINS (Unverified Allergy, Unknown, 02/20/17) Objective Vital Signs Last 24 Hour Vital Signs Date Time Temp Pulse Resp B/P Pulse Ox O2 Delivery O2 Flow Rate FiO2 02/27/17 08:00 97.0 89 20 92/73 95 Room Air 02/27/17 04:00 97.6 78 20 99/71 94 Room Air 02/27/17 00:00 97.7 87 20 91/56 95 Room Air 02/26/17 20:00 97.5 91 20 91/81 100 Room Air 02/26/17 16:00 98.1 88 20 118/73 94 Room Air 02/26/17 16:00 78 02/26/17 12:00 88 02/26/17 12:00 97.1 76 20 149/74 96 Room Air Height (Feet): 5 Height (Inches): 0.00 Weight (Pounds): 120 HEENT: anicteric Respiratory/Chest: no respiratory distress Cardiovascular: regular rhythm Abdomen: no organomegaly Laboratory Tests Test 02/27/17 05:35 02/27/17 08:10 White Blood Count 5.9 K/UL (4.8-10.8) Red Blood Count 3.80 M/UL (4.20-5.40) L Hemoglobin 11.6 G/DL (12.0-16.0) L Hematocrit 36.6 % (37.0-47.0) L Mean Corpuscular Volume 96 FL (80-99) Mean Corpuscular Hemoglobin 30.6 PG (27.0-31.0) Mean Corpuscular Hemoglobin Concent 31.8 G/DL (32.0-36.0) L Red Cell Distribution Width 14.4 % (11.6-14.8) Platelet Count 115 K/UL (150-450) L Mean Platelet Volume 6.3 FL (6.5-10.1) L Neutrophils (%) (Auto) 81.1 % (45.0-75.0) H Lymphocytes (%) (Auto) 8.9 % (20.0-45.0) L Monocytes (%) (Auto) 8.5 % (1.0-10.0) Eosinophils (%) (Auto) 0.3 % (0.0-3.0) Basophils (%) (Auto) 1.2 % (0.0-2.0) Sodium Level 134 mEQ/L (135-145) L Potassium Level 4.2 mEQ/L (3.4-4.9) Chloride Level 101 mEQ/L (98-107) Carbon Dioxide Level 14 mEQ/L (20-30) L Anion Gap 19 (5-15) H Blood Urea Nitrogen 17 mg/dL (7-23) Creatinine 1.1 mg/dL (0.5-0.9) H Estimat Glomerular Filtration Rate mL/min (>60) Glucose Level 107 mg/dL (74-106) H Calcium Level 8.9 mg/dL (8.6-10.2) Prothrombin Time 14.8 SEC (9.30-11.50) H Prothromb Time International Ratio 1.4 (0.9-1.1) H Current Medications Medications (Trade) Dose Ordered Sig/Calvin Route PRN Reason Start Time Stop Time Status Last Admin Dose Admin Acetaminophen (Tylenol) 650 mg Q4H PRN ORAL Mild Pain/Temp > 100.5 02/27/17 01:30 03/29/17 01:29 Al Hydroxide/Mg Hydroxide (Mylanta II) 30 ml Q6H PRN ORAL dyspepsia 02/27/17 03:30 03/29/17 03:29 Dronabinol (Marinol) 2.5 mg DAILY ORAL 02/27/17 09:00 03/29/17 08:59 Enoxaparin Sodium (Lovenox) 60 mg DAILY SUBQ 02/27/17 09:00 03/29/17 08:59 Morphine Sulfate (Morphine Sulfate) 2 mg Q4H PRN IVP Severe Pain (Pain Scale 7-10) 02/27/17 02:00 03/06/17 01:59 Nitroglycerin (Ntg) 0.4 mg Q5MIN X 3 DOSES PRN SL Prn Chest Pain 02/26/17 22:30 03/28/17 22:29 Ondansetron HCl (Zofran) 4 mg Q6H PRN IVP Nausea & Vomiting 02/27/17 03:30 03/29/17 03:29 Polyethylene Glycol (Miralax) 17 gm DAILYPRN PRN ORAL Constipation 02/27/17 21:30 03/29/17 21:29 Promethazine HCl/ Codeine (Phenergan with Codeine) 5 ml Q4H PRN ORAL For Cough 02/27/17 01:30 03/29/17 01:29 Pyridoxine HCl (Vitamin B6) 50 mg DAILY ORAL 02/27/17 09:00 03/29/17 08:59 Temazepam (Restoril) 15 mg HSPRN PRN ORAL Insomnia 02/27/17 21:30 03/06/17 21:29 Warfarin Sodium (Coumadin per pharmacy) 1 ea DAILY PRN MISC Per rx protocol 02/27/17 09:00 03/29/17 08:59 ANDIE MOREL M.D. Feb 27, 2017 09:37
[2017-02-27 12:00] VITALS: BP 102/72
[2017-02-27] MEDS ORDERED: MARINOL2.5 MG ORAL (15:25)
--- NOTE | 2017-02-27 15:27 | Pulmonology Progress Note ---
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 (4) Pleural effusion (5) four point physiologic quadroplegia (6) Diabetes (7) Obstructive uropathy Assessment/Plan cxr reviewed INR is 1.4 still needs coumadine and lovenox off abx fdc anticoagulation Subjective ROS Limited/Unobtainable: Yes Constitutional: Reports: no symptoms HEENT: Repors: no symptoms Allergies: Coded Allergies: IODINE (Verified Allergy, Mild, 10/11/11) PENICILLIN G (Verified Allergy, Mild, 10/11/11) SULFA (SULFONAMIDE ANTIBIOTICS) (Verified Allergy, Mild, 10/11/11) PENICILLINS (Unverified Allergy, Unknown, 02/20/17) Objective Last 24 Hour Vital Signs Date Time Temp Pulse Resp B/P Pulse Ox O2 Delivery O2 Flow Rate FiO2 02/27/17 12:00 97.0 86 20 102/72 95 Room Air 02/27/17 08:00 97.0 89 20 92/73 95 Room Air 02/27/17 04:00 97.6 78 20 99/71 94 Room Air 02/27/17 00:00 97.7 87 20 91/56 95 Room Air 02/26/17 20:00 97.5 91 20 91/81 100 Room Air 02/26/17 16:00 98.1 88 20 118/73 94 Room Air 02/26/17 16:00 78 Intake and Output 02/26/17 02/27/17 19:00 07:00 Intake Total 120 ml 100 ml Output Total 150 ml 300 ml Balance -30 ml -200 ml Intake Oral 120 ml 100 ml Output Urine Total 150 ml 300 ml General Appearance: cachetic HEENT: normocephalic, anicteric, PERRL Respiratory/Chest: chest wall non-tender, lungs clear Cardiovascular: normal peripheral pulses, normal rate Abdomen: normal bowel sounds, soft, non tender Genitourinary: normal external genitalia Extremities: no cyanosis Skin: no lesions Laboratory Tests 02/27/17 05:35: White Blood Count 5.9, Red Blood Count 3.80L, Hemoglobin 11.6L, Hematocrit 36.6L , Mean Corpuscular Volume 96, Mean Corpuscular Hemoglobin 30.6, Mean Corpuscular Hemoglobin Concent 31.8L, Red Cell Distribution Width 14.4, Platelet Count 115L, Mean Platelet Volume 6.3L, Neutrophils (%) (Auto) 81.1H, Lymphocytes (%) (Auto) 8.9L, Monocytes (%) (Auto) 8.5, Eosinophils (%) (Auto) 0.3, Basophils (%) (Auto) 1.2, Sodium Level 134L, Potassium Level 4.2, Chloride Level 101, Carbon Dioxide Level 14L, Anion Gap 19H, Blood Urea Nitrogen 17, Creatinine 1.1H, Estimat Glomerular Filtration Rate , Glucose Level 107H, Calcium Level 8.9 02/27/17 08:10: Prothrombin Time 14.8H, Prothromb Time International Ratio 1.4H Current Medications Medications (Trade) Dose Ordered Sig/Calvin Route PRN Reason Start Time Stop Time Status Last Admin Dose Admin Acetaminophen (Tylenol) 650 mg Q4H PRN ORAL Mild Pain/Temp > 100.5 02/27/17 01:30 03/29/17 01:29 Al Hydroxide/Mg Hydroxide (Mylanta II) 30 ml Q6H PRN ORAL dyspepsia 02/27/17 03:30 03/29/17 03:29 Dronabinol (Marinol) 2.5 mg DAILY ORAL 02/27/17 09:00 03/29/17 08:59 Enoxaparin Sodium (Lovenox) 60 mg DAILY SUBQ 02/27/17 09:00 03/29/17 08:59 Morphine Sulfate (Morphine Sulfate) 2 mg Q4H PRN IVP Severe Pain (Pain Scale 7-10) 02/27/17 02:00 03/06/17 01:59 Nitroglycerin (Ntg) 0.4 mg Q5MIN X 3 DOSES PRN SL Prn Chest Pain 02/26/17 22:30 03/28/17 22:29 Ondansetron HCl (Zofran) 4 mg Q6H PRN IVP Nausea & Vomiting 02/27/17 03:30 03/29/17 03:29 Polyethylene Glycol (Miralax) 17 gm DAILYPRN PRN ORAL Constipation 02/27/17 21:30 03/29/17 21:29 Promethazine HCl/ Codeine (Phenergan with Codeine) 5 ml Q4H PRN ORAL For Cough 02/27/17 01:30 5/3/17 01:29 Pyridoxine HCl (Vitamin B6) 50 mg DAILY ORAL 02/27/17 09:00 03/29/17 08:59 Temazepam (Restoril) 15 mg HSPRN PRN ORAL Insomnia 02/27/17 21:30 03/06/17 21:29 Warfarin Sodium (Coumadin per pharmacy) 1 ea DAILY PRN MISC Per rx protocol 02/27/17 09:00 03/29/17 08:59 Warfarin Sodium (Coumadin) 6 mg COUMADIN ONCE ORAL 02/27/17 17:00 02/27/17 17:01 KASANDRA MILLER Feb 27, 2017 15:27
[2017-02-27 16:00] VITALS: BP 96/67
[2017-02-27] MEDS ORDERED: Warfarin Sodium 3mg ORAL ONE (17:00)
[2017-02-27 20:00] VITALS: BP 101/69
[2017-02-27] MEDS: Enoxaparin 60mg Inj SUBQ SCH (21:30)
[2017-02-27] MEDS ORDERED: Miralax 17gm pkt ORAL PRN (21:30)
[2017-02-28] VITALS: BP 85/53
[2017-02-28 04:00] VITALS: BP 94/56
[2017-02-28 08:00] VITALS: BP 90/46
[2017-02-28] MEDS: Pyridoxine 50mg tab ORAL SCH (08:36)
[2017-02-28] MEDS: Dronabinol 2.5mg Cap ORAL SCH (08:36)
[2017-02-28] MEDS: Enoxaparin 60mg Inj SUBQ SCH (08:37)
--- NOTE | 2017-02-28 09:14 | Infectious Diseases Prog Note ---
Assessment/Plan Assessment/Plan A: The patient is a 77-year-old female with Pneumonia, SP Rx Urine Legionella antigen : Neg SP thoracentesis ( BL ) Neg for Empyema UCx : PSA ( colonizer ) Mild leukocytosis, SP Pl effusion SP ultrasound-guided thoracentesis, yielding 960 cc ( no evidence of empyema ) 02/[address]: Multiple lung masses compatible with metastatic neoplasm , Liver Mass, BL Renal Masses w Mild [place] , Bilateral adrenal masses Bilateral lower extremity edema x1 week rule out possibility of DVT History of PE. HTN History of lung cancer. Diabetes PLAN: Monitor pt off of AB Rx ( 02/25 SP Levaquin d# 5 Monitor CBC. Monitor BMP. Monitor chest x-ray result Subjective Constitutional: Denies: anorexia, chills, drenching sweats, fatigue, fever, no symptoms, other Allergies: Coded Allergies: IODINE (Verified Allergy, Mild, 10/11/11) PENICILLIN G (Verified Allergy, Mild, 10/11/11) SULFA (SULFONAMIDE ANTIBIOTICS) (Verified Allergy, Mild, 10/11/11) PENICILLINS (Unverified Allergy, Unknown, 02/20/17) Objective Vital Signs Last 24 Hour Vital Signs Date Time Temp Pulse Resp B/P Pulse Ox O2 Delivery O2 Flow Rate FiO2 02/28/17 08:00 97.3 89 18 90/46 95 Room Air 02/28/17 04:00 96.6 92 18 94/56 94 Room Air 02/28/17 00:00 97.7 89 18 85/53 95 Room Air 02/27/17 22:29 97.0 02/27/17 20:00 97.0 79 14 101/69 100 Room Air 02/27/17 16:00 96.9 83 16 96/67 94 Room Air 02/27/17 12:00 97.0 86 20 102/72 95 Room Air Height (Feet): 5 Height (Inches): 0.00 Weight (Pounds): 120 HEENT: anicteric Respiratory/Chest: normal breath sounds Cardiovascular: regularly irregular Abdomen: non distended Current Medications Medications (Trade) Dose Ordered Sig/Calvin Route PRN Reason Start Time Stop Time Status Last Admin Dose Admin Acetaminophen (Tylenol) 650 mg Q4H PRN ORAL Mild Pain/Temp > 100.5 02/27/17 01:30 03/29/17 01:29 02/27/17 21:28 Al Hydroxide/Mg Hydroxide (Mylanta II) 30 ml Q6H PRN ORAL dyspepsia 02/27/17 03:30 03/29/17 03:29 Dronabinol (Marinol) 2.5 mg DAILY ORAL 02/27/17 09:00 03/29/17 08:59 02/28/17 08:36 Enoxaparin Sodium (Lovenox) 60 mg Q12HR SUBQ 02/27/17 21:00 03/29/17 20:59 02/28/17 08:37 Morphine Sulfate (Morphine Sulfate) 2 mg Q4H PRN IVP Severe Pain (Pain Scale 7-10) 02/27/17 02:00 03/06/17 01:59 Nitroglycerin (Ntg) 0.4 mg Q5MIN X 3 DOSES PRN SL Prn Chest Pain 02/26/17 22:30 03/28/17 22:29 Ondansetron HCl (Zofran) 4 mg Q6H PRN IVP Nausea & Vomiting 02/27/17 03:30 03/29/17 03:29 Polyethylene Glycol (Miralax) 17 gm DAILYPRN PRN ORAL Constipation 02/27/17 21:30 03/29/17 21:29 Promethazine HCl/ Codeine (Phenergan with Codeine) 5 ml Q4H PRN ORAL For Cough 02/27/17 01:30 03/29/17 01:29 Pyridoxine HCl (Vitamin B6) 50 mg DAILY ORAL 02/27/17 09:00 03/29/17 08:59 02/28/17 08:36 Temazepam (Restoril) 15 mg HSPRN PRN ORAL Insomnia 02/27/17 21:30 03/06/17 21:29 Warfarin Sodium (Coumadin per pharmacy) 1 ea DAILY PRN MISC Per rx protocol 02/27/17 09:00 03/29/17 08:59 ANDIE MROEL M.D. Feb 28, 2017 09:13
[2017-02-28 11:59] VITALS: BP 117/53
--- NOTE | 2017-02-28 16:48 | Pulmonology Progress Note ---
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 Subjective ROS Limited/Unobtainable: No Interval Events: opens eyes, looks comfortable Allergies: Coded Allergies: IODINE (Verified Allergy, Mild, 10/11/11) PENICILLIN G (Verified Allergy, Mild, 10/11/11) SULFA (SULFONAMIDE ANTIBIOTICS) (Verified Allergy, Mild, 10/11/11) PENICILLINS (Unverified Allergy, Unknown, 02/20/17) Objective Last 24 Hour Vital Signs Date Time Temp Pulse Resp B/P Pulse Ox O2 Delivery O2 Flow Rate FiO2 02/28/17 11:59 98.6 92 15 117/53 100 Room Air 02/28/17 08:00 97.3 89 18 90/46 95 Room Air 02/28/17 04:00 96.6 92 18 94/56 94 Room Air 02/28/17 00:00 97.7 89 18 85/53 95 Room Air 02/27/17 22:29 97.0 02/27/17 20:00 97.0 79 14 101/69 100 Room Air Intake and Output 02/27/17 02/28/17 19:00 07:00 Output Total 175 ml 140 ml Balance -175 ml -140 ml Output Urine Total 175 ml 140 ml General Appearance: cachetic HEENT: normocephalic, atraumatic Respiratory/Chest: chest wall non-tender, lungs clear Cardiovascular: normal peripheral pulses, normal rate Abdomen: normal bowel sounds, soft, non tender Extremities: no clubbing 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, 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 gait Lymphatic: no neck adenopathy Current Medications Medications (Trade) Dose Ordered Sig/Calvin Route PRN Reason Start Time Stop Time Status Last Admin Dose Admin Acetaminophen (Tylenol) 650 mg Q4H PRN ORAL Mild Pain/Temp > 100.5 02/27/17 01:30 03/29/17 01:29 02/27/17 21:28 Al Hydroxide/Mg Hydroxide (Mylanta II) 30 ml Q6H PRN ORAL dyspepsia 4/3/17 03:30 03/29/17 03:29 Dronabinol (Marinol) 2.5 mg DAILY ORAL 02/27/17 09:00 03/29/17 08:59 02/28/17 08:36 Morphine Sulfate (Morphine Sulfate) 2 mg Q4H PRN IVP Severe Pain (Pain Scale 7-10) 02/27/17 02:00 03/06/17 01:59 Nitroglycerin (Ntg) 0.4 mg Q5MIN X 3 DOSES PRN SL Prn Chest Pain 02/26/17 22:30 03/28/17 22:29 Ondansetron HCl (Zofran) 4 mg Q6H PRN IVP Nausea & Vomiting 02/27/17 03:30 03/29/17 03:29 Polyethylene Glycol (Miralax) 17 gm DAILYPRN PRN ORAL Constipation 02/27/17 21:30 03/29/17 21:29 Promethazine HCl/ Codeine (Phenergan with Codeine) 5 ml Q4H PRN ORAL For Cough 02/27/17 01:30 03/29/17 01:29 Pyridoxine HCl (Vitamin B6) 50 mg DAILY ORAL 02/27/17 09:00 03/29/17 08:59 02/28/17 08:36 Rivaroxaban (Xarelto) 15 mg Q12HR ORAL 02/28/17 21:00 03/30/17 20:59 Temazepam (Restoril) 15 mg HSPRN PRN ORAL Insomnia 02/27/17 21:30 03/06/17 21:29 KASANDRA MILLER Feb 28, 2017 16:48
[2017-02-28 20:00] VITALS: BP 88/51
[2017-02-28] MEDS: Xarelto 15mg tab ORAL SCH (20:37)
[2017-02-28] MEDS: Morphine Sulfate 2mg/ml Inj IVP PRN (20:53)
[2017-03-01] VITALS (7 sets, daily range): BP systolic 87–113; BP diastolic 64–89
[2017-03-01] MEDS: Dronabinol 2.5mg Cap ORAL SCH (09:34)
[2017-03-01] MEDS: Pyridoxine 50mg tab ORAL SCH (09:34)
[2017-03-01] MEDS: Xarelto 15mg tab ORAL SCH ×2 (09:34→22:27)
--- NOTE | 2017-03-01 10:31 | Diagnostic Imaging Report ---
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 Imaging also reveals patency of the superficial femoral, popliteal and calf veins. Greater saphenous vein also within normal limits. Doppler indicates normal spontaneous flow within these segments. LEFT LEG: Venous imaging reveals acute thrombus in the common femoral to the calf veins (posterior tibial and peroneal). Imaging also reveals patency of the calf vein (anterior tibial). The greater saphenous vein is within normal limits. JESSICA Olivia was notified of abnormal results at 1345 hours.
[2017-03-01] MEDS: Morphine Sulfate 2mg/ml Inj IVP PRN (12:44)
--- NOTE | 2017-03-01 19:12 | Infectious Diseases Prog Note ---
Assessment/Plan Assessment/Plan A: The patient is a 77-year-old female with Pneumonia, SP Rx Urine Legionella antigen : Neg SP thoracentesis ( BL ) Neg for Empyema UCx : PSA ( colonizer ) Mild leukocytosis, SP Pl effusion SP ultrasound-guided thoracentesis, yielding 960 cc ( no evidence of empyema ) 02/[address]: Multiple lung masses compatible with metastatic neoplasm , Liver Mass, BL Renal Masses w Mild [place] , Bilateral adrenal masses Bilateral lower extremity edema x1 week rule out possibility of DVT History of PE. HTN History of lung cancer. Diabetes PLAN: Monitor pt off of AB Rx ( 02/25 SP Levaquin d# 5 ) Monitor CBC. Monitor BMP. Monitor chest x-ray result Subjective Constitutional: Denies: anorexia, chills, drenching sweats, fatigue, fever, no symptoms, other Allergies: Coded Allergies: IODINE (Verified Allergy, Mild, 10/11/11) PENICILLIN G (Verified Allergy, Mild, 10/11/11) SULFA (SULFONAMIDE ANTIBIOTICS) (Verified Allergy, Mild, 10/11/11) PENICILLINS (Unverified Allergy, Unknown, 02/20/17) Objective Vital Signs Last 24 Hour Vital Signs Date Time Temp Pulse Resp B/P Pulse Ox O2 Delivery O2 Flow Rate FiO2 03/01/17 15:47 97.5 86 17 102/75 96 Room Air 03/01/17 12:00 96.7 91 16 98/68 100 Room Air 03/01/17 10:00 96.7 91 16 98/68 100 Room Air 03/01/17 08:00 96.8 87 16 96/68 97 Room Air 03/01/17 04:00 98.0 81 20 113/89 95 Room Air 03/01/17 00:00 97.2 89 20 87/64 95 Room Air 02/28/17 21:23 98.6 02/28/17 20:24 98.6 02/28/17 20:00 97.3 71 20 88/51 96 Room Air Height (Feet): 5 Height (Inches): 0.00 Weight (Pounds): 120 HEENT: anicteric Respiratory/Chest: no respiratory distress Cardiovascular: regularly irregular Abdomen: non distended Current Medications Medications (Trade) Dose Ordered Sig/Calvin Route PRN Reason Start Time Stop Time Status Last Admin Dose Admin Acetaminophen (Tylenol) 650 mg Q4H PRN ORAL Mild Pain/Temp > 100.5 02/27/17 01:30 03/29/17 01:29 02/28/17 19:25 Al Hydroxide/Mg Hydroxide (Mylanta II) 30 ml Q6H PRN ORAL dyspepsia 02/27/17 03:30 03/29/17 03:29 Dronabinol (Marinol) 2.5 mg DAILY ORAL 02/27/17 09:00 03/29/17 08:59 03/01/17 09:34 Morphine Sulfate (Morphine Sulfate) 2 mg Q4H PRN IVP Severe Pain (Pain Scale 7-10) 02/27/17 02:00 03/06/17 01:59 03/01/17 12:44 Nitroglycerin (Ntg) 0.4 mg Q5MIN X 3 DOSES PRN SL Prn Chest Pain 02/26/17 22:30 03/28/17 22:29 Ondansetron HCl (Zofran) 4 mg Q6H PRN IVP Nausea & Vomiting 02/27/17 03:30 03/29/17 03:29 Polyethylene Glycol (Miralax) 17 gm DAILYPRN PRN ORAL Constipation 02/27/17 21:30 03/29/17 21:29 Promethazine HCl/ Codeine (Phenergan with Codeine) 5 ml Q4H PRN ORAL For Cough 02/27/17 01:30 03/29/17 01:29 Pyridoxine HCl (Vitamin B6) 50 mg DAILY ORAL 02/27/17 09:00 03/29/17 08:59 03/01/17 09:34 Rivaroxaban (Xarelto) 15 mg Q12HR ORAL 02/28/17 21:00 03/30/17 20:59 03/01/17 09:34 Temazepam (Restoril) 15 mg HSPRN PRN ORAL Insomnia 02/27/17 21:30 03/06/17 21:29 ANDIE MOREL M.D. Mar 01, 2017 19:12
--- NOTE | 2017-03-01 23:15 | Pulmonology Progress Note ---
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 Subjective ROS Limited/Unobtainable: Yes Constitutional: Reports: anorexia, fatigue Respiratory: Reports: productive cough, shortness of breath, sputum Neurologic: Reports: confusion, weakness Allergies: Coded Allergies: IODINE (Verified Allergy, Mild, 10/11/11) PENICILLIN G (Verified Allergy, Mild, 10/11/11) SULFA (SULFONAMIDE ANTIBIOTICS) (Verified Allergy, Mild, 10/11/11) PENICILLINS (Unverified Allergy, Unknown, 02/20/17) Objective Last 24 Hour Vital Signs Date Time Temp Pulse Resp B/P Pulse Ox O2 Delivery O2 Flow Rate FiO2 03/01/17 20:00 96.6 90 16 100/76 95 Room Air 03/01/17 15:47 97.5 86 17 102/75 96 Room Air 03/01/17 12:00 96.7 91 16 98/68 100 Room Air 03/01/17 10:00 96.7 91 16 98/68 100 Room Air 03/01/17 08:00 96.8 87 16 96/68 97 Room Air 03/01/17 04:00 98.0 81 20 113/89 95 Room Air 03/01/17 00:00 97.2 89 20 87/64 95 Room Air Intake and Output 02/28/17 03/01/17 19:00 07:00 Intake Total 120 ml Output Total 50 ml 100 ml Balance -50 ml 20 ml Intake Oral 120 ml Output Urine Total 50 ml 100 ml General Appearance: no acute distress HEENT: normocephalic, atraumatic Respiratory/Chest: chest wall non-tender, decreased breath sounds, accessory muscle use, rhonchi Breasts: no masses Cardiovascular: normal peripheral pulses, normal rate, regular rhythm, no JVD Abdomen: normal bowel sounds, soft, non tender, no organomegaly, non distended Genitourinary: normal external genitalia Extremities: no cyanosis Skin: no rash, no lesions 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, no motor/sensory deficits Current Medications Medications (Trade) Dose Ordered Sig/Calvin Route PRN Reason Start Time Stop Time Status Last Admin Dose Admin Acetaminophen (Tylenol) 650 mg Q4H PRN ORAL Mild Pain/Temp > 100.5 02/27/17 01:30 03/29/17 01:29 02/28/17 19:25 Al Hydroxide/Mg Hydroxide (Mylanta II) 30 ml Q6H PRN ORAL dyspepsia 02/27/17 03:30 03/29/17 03:29 Dronabinol (Marinol) 2.5 mg DAILY ORAL 02/27/17 09:00 03/29/17 08:59 03/01/17 09:34 Morphine Sulfate (Morphine Sulfate) 2 mg Q4H PRN IVP Severe Pain (Pain Scale 7-10) 02/27/17 02:00 03/06/17 01:59 03/01/17 12:44 Nitroglycerin (Ntg) 0.4 mg Q5MIN X 3 DOSES PRN SL Prn Chest Pain 02/26/17 22:30 03/28/17 22:29 Ondansetron HCl (Zofran) 4 mg Q6H PRN IVP Nausea & Vomiting 02/27/17 03:30 03/29/17 03:29 Polyethylene Glycol (Miralax) 17 gm DAILYPRN PRN ORAL Constipation 02/27/17 21:30 03/29/17 21:29 Promethazine HCl/ Codeine (Phenergan with Codeine) 5 ml Q4H PRN ORAL For Cough 02/27/17 01:30 03/29/17 01:29 Pyridoxine HCl (Vitamin B6) 50 mg DAILY ORAL 02/27/17 09:00 03/29/17 08:59 03/01/17 09:34 Rivaroxaban (Xarelto) 15 mg Q12HR ORAL 02/28/17 21:00 03/30/17 20:59 03/01/17 09:34 Temazepam (Restoril) 15 mg HSPRN PRN ORAL Insomnia 02/27/17 21:30 03/06/17 21:29 KASANDRA MILLER Mar 01, 2017 23:15
[2017-03-02] VITALS: BP 100/71
[2017-03-02 04:00] VITALS: BP 96/53
[2017-03-02 08:17] VITALS: BP 90/70
[2017-03-02] MEDS: Pyridoxine 50mg tab ORAL SCH (09:15)
[2017-03-02] MEDS: Xarelto 15mg tab ORAL SCH ×2 (09:15→20:27)
[2017-03-02] MEDS: Dronabinol 2.5mg Cap ORAL SCH (09:15)
--- NOTE | 2017-03-02 09:27 | Infectious Diseases Prog Note ---
Assessment/Plan Assessment/Plan A: The patient is a 77-year-old female with Pneumonia, SP Rx Urine Legionella antigen : Neg SP thoracentesis ( BL ) Neg for Empyema UCx : PSA ( colonizer ) Mild leukocytosis, SP Pl effusion SP ultrasound-guided thoracentesis, yielding 960 cc ( no evidence of empyema ) 02/[address]: Multiple lung masses compatible with metastatic neoplasm , Liver Mass, BL Renal Masses w Mild [place] , Bilateral adrenal masses Bilateral lower extremity edema x1 week rule out possibility of DVT History of PE. HTN History of lung cancer. Diabetes PLAN: Monitor pt off of AB Rx ( 02/25 SP Levaquin d# 5 ) Monitor CBC. Monitor BMP. Monitor chest x-ray result Subjective Constitutional: Denies: anorexia, chills, drenching sweats, fatigue, fever, no symptoms, other Allergies: Coded Allergies: IODINE (Verified Allergy, Mild, 10/11/11) PENICILLIN G (Verified Allergy, Mild, 10/11/11) SULFA (SULFONAMIDE ANTIBIOTICS) (Verified Allergy, Mild, 10/11/11) PENICILLINS (Unverified Allergy, Unknown, 02/20/17) Objective Vital Signs Last 24 Hour Vital Signs Date Time Temp Pulse Resp B/P Pulse Ox O2 Delivery O2 Flow Rate FiO2 03/02/17 08:17 97.0 60 21 90/70 99 Room Air 03/02/17 04:00 97.4 88 18 96/53 95 Room Air 03/02/17 00:00 96.8 89 16 100/71 95 Room Air 03/01/17 20:00 96.6 90 16 100/76 95 Room Air 03/01/17 15:47 97.5 86 17 102/75 96 Room Air 03/01/17 12:00 96.7 91 16 98/68 100 Room Air 03/01/17 10:00 96.7 91 16 98/68 100 Room Air Height (Feet): 5 Height (Inches): 0.00 Weight (Pounds): 120 HEENT: anicteric Respiratory/Chest: normal breath sounds Cardiovascular: regular rhythm Abdomen: soft, non tender Current Medications Medications (Trade) Dose Ordered Sig/Calvin Route PRN Reason Start Time Stop Time Status Last Admin Dose Admin Acetaminophen (Tylenol) 650 mg Q4H PRN ORAL Mild Pain/Temp > 100.5 02/27/17 01:30 03/29/17 01:29 02/28/17 19:25 Al Hydroxide/Mg Hydroxide (Mylanta II) 30 ml Q6H PRN ORAL dyspepsia 02/27/17 03:30 03/29/17 03:29 Dronabinol (Marinol) 2.5 mg DAILY ORAL 02/27/17 09:00 03/29/17 08:59 03/02/17 09:15 Morphine Sulfate (Morphine Sulfate) 2 mg Q4H PRN IVP Severe Pain (Pain Scale 7-10) 02/27/17 02:00 03/06/17 01:59 03/01/17 12:44 Nitroglycerin (Ntg) 0.4 mg Q5MIN X 3 DOSES PRN SL Prn Chest Pain 02/26/17 22:30 03/28/17 22:29 Ondansetron HCl (Zofran) 4 mg Q6H PRN IVP Nausea & Vomiting 02/27/17 03:30 03/29/17 03:29 Polyethylene Glycol (Miralax) 17 gm DAILYPRN PRN ORAL Constipation 02/27/17 21:30 03/29/17 21:29 Promethazine HCl/ Codeine (Phenergan with Codeine) 5 ml Q4H PRN ORAL For Cough 02/27/17 01:30 03/29/17 01:29 Pyridoxine HCl (Vitamin B6) 50 mg DAILY ORAL 02/27/17 09:00 03/29/17 08:59 03/02/17 09:15 Rivaroxaban (Xarelto) 15 mg Q12HR ORAL 02/28/17 21:00 03/30/17 20:59 03/02/17 09:15 Temazepam (Restoril) 15 mg HSPRN PRN ORAL Insomnia 02/27/17 21:30 03/06/17 21:29 ANDIE MOREL M.D. Mar 02, 2017 09:27
[2017-03-02 11:54] VITALS: BP 96/73
[2017-03-02] MEDS ORDERED: Fleet's Enema 133ml RECTAL PRN (12:30)
[2017-03-02] MEDS: Morphine Sulfate 2mg/ml Inj IVP PRN (12:54)
--- NOTE | 2017-03-02 15:23 | Wound Care Consultation ---
Wound Assessment Wound Assessment : Wound Number: #1 Wound Present on Admission: Yes New Wound: No Status Change of Wound: No Wound Location Body Site Modif: mid Wound Location Body Site: sacral Wound Type: pressure ulcer Acitie Test: Does not Caitie Pressure Ulcer Stage: deep tissue injury Wound Thickness: Full Thickness Wound Length: 5.0 Wound Width: 4.0 Wound Depth: utd Percent of Wound Purple/Maroon: 100 Wound Drainage Amount: None Wound Drainage Odor: None/Absent Tissue Surrounding Wound: Erythemic Wound General Appearance: Reddened Wound Comment #1 Sacral DTI pressure ulcer Recommendation -Sacral area DTI Cleanse with saline pat dry apply Triad cream leave area open to air. -Turn and reposition -Keep clean dry -Low air loss overlay mattress -Optimize nutrition -Heel protector -Assess and f/u accordingly for any changes JOBY VALADEZ Mar 02, 2017 15:23
[2017-03-02 16:00] VITALS: BP 129/113
[2017-03-02 19:00] VITALS: BP 131/90
--- NOTE | 2017-03-02 23:30 | Pulmonology Progress Note ---
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 Subjective Constitutional: Reports: anorexia, chills, fatigue Respiratory: Reports: dyspnea at rest, dyspnea on exertion, productive cough, shortness of breath, sputum Allergies: Coded Allergies: IODINE (Verified Allergy, Mild, 10/11/11) PENICILLIN G (Verified Allergy, Mild, 10/11/11) SULFA (SULFONAMIDE ANTIBIOTICS) (Verified Allergy, Mild, 10/11/11) PENICILLINS (Unverified Allergy, Unknown, 02/20/17) Objective Last 24 Hour Vital Signs Date Time Temp Pulse Resp B/P Pulse Ox O2 Delivery O2 Flow Rate FiO2 03/02/17 19:00 97.3 80 18 131/90 95 Room Air 03/02/17 16:00 96.0 87 18 129/113 94 Room Air 03/02/17 11:54 97.6 87 21 96/73 97 Room Air 03/02/17 08:17 97.0 60 21 90/70 99 Room Air 03/02/17 04:00 97.4 88 18 96/53 95 Room Air 03/02/17 00:00 96.8 89 16 100/71 95 Room Air Intake and Output 03/01/17 03/02/17 19:00 07:00 Intake Total 100 ml 220 ml Output Total 70 ml 100 ml Balance 30 ml 120 ml Intake Oral 100 ml 220 ml Output Urine Total 70 ml 100 ml General Appearance: no acute distress HEENT: normocephalic, atraumatic, PERRL Respiratory/Chest: chest wall non-tender, decreased breath sounds, accessory muscle use, crackles/rales, rhonchi, pleural rub Breasts: no masses Cardiovascular: normal peripheral pulses, normal rate, regular rhythm, no JVD Abdomen: normal bowel sounds, soft, non tender, no organomegaly, non distended Genitourinary: normal external genitalia Extremities: no cyanosis Skin: lesions 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, 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, 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 Current Medications Medications (Trade) Dose Ordered Sig/Calvin Route PRN Reason Start Time Stop Time Status Last Admin Dose Admin Acetaminophen (Tylenol) 650 mg Q4H PRN ORAL Mild Pain/Temp > 100.5 02/27/17 01:30 03/29/17 01:29 02/28/17 19:25 Al Hydroxide/Mg Hydroxide (Mylanta II) 30 ml Q6H PRN ORAL dyspepsia 02/27/17 03:30 03/29/17 03:29 Dronabinol (Marinol) 2.5 mg DAILY ORAL 02/27/17 09:00 03/29/17 08:59 03/02/17 09:15 Morphine Sulfate (Morphine Sulfate) 2 mg Q4H PRN IVP Severe Pain (Pain Scale 7-10) 02/27/17 02:00 03/06/17 01:59 03/02/17 12:54 Nitroglycerin (Ntg) 0.4 mg Q5MIN X 3 DOSES PRN SL Prn Chest Pain 02/26/17 22:30 03/28/17 22:29 Ondansetron HCl (Zofran) 4 mg Q6H PRN IVP Nausea & Vomiting 02/27/17 03:30 03/29/17 03:29 Polyethylene Glycol (Miralax) 17 gm DAILYPRN PRN ORAL Constipation 02/27/17 21:30 03/29/17 21:29 Promethazine HCl/ Codeine (Phenergan with Codeine) 5 ml Q4H PRN ORAL For Cough 02/27/17 01:30 03/29/17 01:29 Pyridoxine HCl (Vitamin B6) 50 mg DAILY ORAL 02/27/17 09:00 03/29/17 08:59 03/02/17 09:15 Rivaroxaban (Xarelto) 15 mg Q12HR ORAL 02/28/17 21:00 03/30/17 20:59 03/02/17 20:27 Sodium Phosphate (Fleet's Sodium Phosl Enema) 133 ml DAILY PRN RECTAL Constipation 03/02/17 12:30 04/01/17 12:29 Temazepam (Restoril) 15 mg HSPRN PRN ORAL Insomnia 02/27/17 21:30 03/06/17 21:29 KASANDRA MILLER Mar 02, 2017 23:30
[2017-03-03] VITALS: BP 114/92
[2017-03-03] MEDS: Morphine Sulfate 2mg/ml Inj IVP PRN (00:03)
[2017-03-03 04:00] VITALS: BP 80/56
[2017-03-03] MEDS: Xarelto 15mg tab ORAL SCH ×2 (08:07→20:37)
[2017-03-03] MEDS: Pyridoxine 50mg tab ORAL SCH (08:07)
[2017-03-03] MEDS: Dronabinol 2.5mg Cap ORAL SCH (08:07)
[2017-03-03 08:15] VITALS: BP 94/61
[2017-03-03 16:00] VITALS: BP 100/49
[2017-03-03 20:00] VITALS: BP 115/94
--- NOTE | 2017-03-03 20:38 | Pulmonology Progress Note ---
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 Subjective ROS Limited/Unobtainable: Yes Constitutional: Reports: anorexia, chills, fatigue, fever Respiratory: Reports: dyspnea at rest, dyspnea on exertion, productive cough, shortness of breath, sputum Neurologic: Reports: confusion, weakness Allergies: Coded Allergies: IODINE (Verified Allergy, Mild, 10/11/11) PENICILLIN G (Verified Allergy, Mild, 10/11/11) SULFA (SULFONAMIDE ANTIBIOTICS) (Verified Allergy, Mild, 10/11/11) PENICILLINS (Unverified Allergy, Unknown, 02/20/17) Objective Last 24 Hour Vital Signs Date Time Temp Pulse Resp B/P Pulse Ox O2 Delivery O2 Flow Rate FiO2 03/03/17 16:00 97.7 82 18 100/49 Room Air 03/03/17 08:15 98.1 91 20 94/61 97 Room Air 03/03/17 04:00 97.5 89 18 80/56 100 Room Air 03/03/17 00:00 97.3 91 20 114/92 100 Room Air Intake and Output 03/02/17 03/03/17 19:00 07:00 Intake Total 30 ml 240 ml Output Total 20 ml 300 ml Balance 10 ml -60 ml Intake Oral 30 ml 240 ml Output Urine Total 20 ml 300 ml General Appearance: no acute distress HEENT: normocephalic, atraumatic, PERRL Respiratory/Chest: chest wall non-tender, decreased breath sounds, accessory muscle use, crackles/rales, rhonchi, expiratory wheezing, pleural rub Breasts: no masses Cardiovascular: normal peripheral pulses, normal rate, regular rhythm, no JVD Abdomen: normal bowel sounds, soft, non tender, no organomegaly, non distended Genitourinary: normal external genitalia Extremities: no cyanosis Skin: rash, lesions 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, 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, disoriented Current Medications Medications (Trade) Dose Ordered Sig/Calvin Route PRN Reason Start Time Stop Time Status Last Admin Dose Admin Acetaminophen (Tylenol) 650 mg Q4H PRN ORAL Mild Pain/Temp > 100.5 02/27/17 01:30 03/29/17 01:29 02/28/17 19:25 Al Hydroxide/Mg Hydroxide (Mylanta II) 30 ml Q6H PRN ORAL dyspepsia 02/27/17 03:30 03/29/17 03:29 Dronabinol (Marinol) 2.5 mg DAILY ORAL 02/27/17 09:00 03/29/17 08:59 03/03/17 08:07 Morphine Sulfate (Morphine Sulfate) 2 mg Q4H PRN IVP Severe Pain (Pain Scale 7-10) 02/27/17 02:00 03/06/17 01:59 03/03/17 00:03 Nitroglycerin (Ntg) 0.4 mg Q5MIN X 3 DOSES PRN SL Prn Chest Pain 02/26/17 22:30 03/28/17 22:29 Ondansetron HCl (Zofran) 4 mg Q6H PRN IVP Nausea & Vomiting 02/27/17 03:30 03/29/17 03:29 Polyethylene Glycol (Miralax) 17 gm DAILYPRN PRN ORAL Constipation 02/27/17 21:30 03/29/17 21:29 Promethazine HCl/ Codeine (Phenergan with Codeine) 5 ml Q4H PRN ORAL For Cough 02/27/17 01:30 03/29/17 01:29 Pyridoxine HCl (Vitamin B6) 50 mg DAILY ORAL 02/27/17 09:00 03/29/17 08:59 03/03/17 08:07 Rivaroxaban (Xarelto) 15 mg Q12HR ORAL 02/28/17 21:00 03/21/17 21:01 03/03/17 20:37 Rivaroxaban (Xarelto) 20 mg DAILY ORAL 03/22/17 09:00 04/21/17 08:59 Sodium Phosphate (Fleet's Sodium Phosl Enema) 133 ml DAILY PRN RECTAL Constipation 03/02/17 12:30 04/01/17 12:29 Temazepam (Restoril) 15 mg HSPRN PRN ORAL Insomnia 02/27/17 21:30 03/06/17 21:29 KASANDRA MILLER Mar 03, 2017 20:38
[2017-03-04] VITALS: BP 72/40
[2017-03-04] MEDS: Morphine Sulfate 2mg/ml Inj IVP PRN ×2 (01:10→17:54)
[2017-03-04 04:00] VITALS: BP 93/68
[2017-03-04 08:08] VITALS: BP 140/44
[2017-03-04] MEDS: Pyridoxine 50mg tab ORAL SCH (10:05)
[2017-03-04] MEDS: Xarelto 15mg tab ORAL SCH ×2 (10:05→20:57)
[2017-03-04] MEDS: Dronabinol 2.5mg Cap ORAL SCH (10:05)
--- NOTE | 2017-03-04 10:37 | Infectious Diseases Prog Note ---
Assessment/Plan Assessment/Plan A: The patient is a 77-year-old female with Pneumonia, SP Rx Urine Legionella antigen : Neg SP thoracentesis ( BL ) Neg for Empyema UCx : PSA ( colonizer ) Mild leukocytosis, SP Pl effusion SP ultrasound-guided thoracentesis, yielding 960 cc ( no evidence of empyema ) 02/[address]: Multiple lung masses compatible with metastatic neoplasm , Liver Mass, BL Renal Masses w Mild [place] , Bilateral adrenal masses Bilateral lower extremity edema x1 week rule out possibility of DVT History of PE. HTN History of lung cancer. Diabetes PLAN: Monitor pt off of AB Rx ( 02/25 SP Levaquin d# 5 ) Monitor CBC. Monitor BMP. Monitor chest x-ray result Subjective Constitutional: Denies: anorexia, chills, drenching sweats, fatigue, fever, no symptoms, other Allergies: Coded Allergies: IODINE (Verified Allergy, Mild, 10/11/11) PENICILLIN G (Verified Allergy, Mild, 10/11/11) SULFA (SULFONAMIDE ANTIBIOTICS) (Verified Allergy, Mild, 10/11/11) PENICILLINS (Unverified Allergy, Unknown, 02/20/17) Objective Vital Signs Last 24 Hour Vital Signs Date Time Temp Pulse Resp B/P Pulse Ox O2 Delivery O2 Flow Rate FiO2 03/04/17 08:08 97.3 93 16 140/44 96 Room Air 03/04/17 04:00 96.6 92 18 93/68 100 Room Air 03/04/17 00:00 97.3 87 18 72/40 100 Room Air 03/03/17 20:00 96.4 83 16 115/94 87 Room Air 03/03/17 16:00 97.7 82 18 100/49 Room Air Height (Feet): 5 Height (Inches): 0.00 Weight (Pounds): 120 HEENT: anicteric Respiratory/Chest: normal breath sounds Cardiovascular: normal rate Abdomen: no organomegaly Current Medications Medications (Trade) Dose Ordered Sig/Calvin Route PRN Reason Start Time Stop Time Status Last Admin Dose Admin Acetaminophen (Tylenol) 650 mg Q4H PRN ORAL Mild Pain/Temp > 100.5 02/27/17 01:30 03/29/17 01:29 02/28/17 19:25 Al Hydroxide/Mg Hydroxide (Mylanta II) 30 ml Q6H PRN ORAL dyspepsia 4/3/17 03:30 03/29/17 03:29 Dronabinol (Marinol) 2.5 mg DAILY ORAL 02/27/17 09:00 03/29/17 08:59 03/04/17 10:05 Morphine Sulfate (Morphine Sulfate) 2 mg Q4H PRN IVP Severe Pain (Pain Scale 7-10) 02/27/17 02:00 03/06/17 01:59 03/04/17 01:10 Nitroglycerin (Ntg) 0.4 mg Q5MIN X 3 DOSES PRN SL Prn Chest Pain 02/26/17 22:30 03/28/17 22:29 Ondansetron HCl (Zofran) 4 mg Q6H PRN IVP Nausea & Vomiting 02/27/17 03:30 03/29/17 03:29 Polyethylene Glycol (Miralax) 17 gm DAILYPRN PRN ORAL Constipation 02/27/17 21:30 03/29/17 21:29 Promethazine HCl/ Codeine (Phenergan with Codeine) 5 ml Q4H PRN ORAL For Cough 02/27/17 01:30 03/29/17 01:29 Pyridoxine HCl (Vitamin B6) 50 mg DAILY ORAL 02/27/17 09:00 03/29/17 08:59 03/04/17 10:05 Rivaroxaban (Xarelto) 15 mg Q12HR ORAL 02/28/17 21:00 03/21/17 21:01 03/04/17 10:05 Rivaroxaban (Xarelto) 20 mg DAILY ORAL 03/22/17 09:00 04/21/17 08:59 Sodium Phosphate (Fleet's Sodium Phosl Enema) 133 ml DAILY PRN RECTAL Constipation 03/02/17 12:30 04/01/17 12:29 Temazepam (Restoril) 15 mg HSPRN PRN ORAL Insomnia 02/27/17 21:30 03/06/17 21:29 ANDIE MOREL M.D. Mar 04, 2017 10:37
[2017-03-04 11:37] VITALS: BP 107/64
--- NOTE | 2017-03-04 23:26 | Pulmonology Progress Note ---
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 Subjective ROS Limited/Unobtainable: Yes Constitutional: Reports: anorexia, fatigue Respiratory: Reports: dyspnea at rest, dyspnea on exertion, pleuritic pain, productive cough, shortness of breath, sputum Neurologic: Reports: confusion, weakness Allergies: Coded Allergies: IODINE (Verified Allergy, Mild, 10/11/11) PENICILLIN G (Verified Allergy, Mild, 10/11/11) SULFA (SULFONAMIDE ANTIBIOTICS) (Verified Allergy, Mild, 10/11/11) PENICILLINS (Unverified Allergy, Unknown, 02/20/17) Objective Last 24 Hour Vital Signs Date Time Temp Pulse Resp B/P Pulse Ox O2 Delivery O2 Flow Rate FiO2 03/04/17 18:24 97.2 03/04/17 11:37 97.2 84 16 107/64 100 Room Air 03/04/17 08:08 97.3 93 16 140/44 96 Room Air 03/04/17 04:00 96.6 92 18 93/68 100 Room Air 03/04/17 00:00 97.3 87 18 72/40 100 Room Air Intake and Output 03/03/17 03/04/17 18:59 06:59 Intake Total 120 ml Output Total 250 ml Balance -130 ml Intake Oral 120 ml Output Urine Total 250 ml General Appearance: no acute distress HEENT: normocephalic, atraumatic Respiratory/Chest: chest wall non-tender, decreased breath sounds, accessory muscle use, rhonchi, pleural rub Breasts: no masses Cardiovascular: normal peripheral pulses, normal rate, regular rhythm, no JVD Abdomen: normal bowel sounds, soft, non tender, no organomegaly, non distended Genitourinary: normal external genitalia Extremities: no cyanosis Skin: rash, lesions 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, disoriented Current Medications Medications (Trade) Dose Ordered Sig/Calvin Route PRN Reason Start Time Stop Time Status Last Admin Dose Admin Acetaminophen (Tylenol) 650 mg Q4H PRN ORAL Mild Pain/Temp > 100.5 02/27/17 01:30 03/29/17 01:29 02/28/17 19:25 Al Hydroxide/Mg Hydroxide (Mylanta II) 30 ml Q6H PRN ORAL dyspepsia 02/27/17 03:30 03/29/17 03:29 Dronabinol (Marinol) 2.5 mg DAILY ORAL 02/27/17 09:00 03/29/17 08:59 03/04/17 10:05 Morphine Sulfate (Morphine Sulfate) 2 mg Q4H PRN IVP Severe Pain (Pain Scale 7-10) 02/27/17 02:00 03/06/17 01:59 03/04/17 17:54 Nitroglycerin (Ntg) 0.4 mg Q5MIN X 3 DOSES PRN SL Prn Chest Pain 02/26/17 22:30 03/28/17 22:29 Ondansetron HCl (Zofran) 4 mg Q6H PRN IVP Nausea & Vomiting 02/27/17 03:30 03/29/17 03:29 Polyethylene Glycol (Miralax) 17 gm DAILYPRN PRN ORAL Constipation 02/27/17 21:30 03/29/17 21:29 Promethazine HCl/ Codeine (Phenergan with Codeine) 5 ml Q4H PRN ORAL For Cough 02/27/17 01:30 03/29/17 01:29 Pyridoxine HCl (Vitamin B6) 50 mg DAILY ORAL 02/27/17 09:00 03/29/17 08:59 03/04/17 10:05 Rivaroxaban (Xarelto) 15 mg Q12HR ORAL 02/28/17 21:00 03/21/17 21:01 03/04/17 20:57 Rivaroxaban (Xarelto) 20 mg DAILY ORAL 03/22/17 09:00 04/21/17 08:59 Sodium Phosphate (Fleet's Sodium Phosl Enema) 133 ml DAILY PRN RECTAL Constipation 03/02/17 12:30 04/01/17 12:29 Temazepam (Restoril) 15 mg HSPRN PRN ORAL Insomnia 02/27/17 21:30 03/06/17 21:29 KASANDRA MILLER Mar 04, 2017 23:26
[2017-03-05] VITALS: BP 99/63
[2017-03-05 04:00] VITALS: BP 102/49
[2017-03-05 08:15] VITALS: BP 122/81
[2017-03-05] MEDS: Pyridoxine 50mg tab ORAL SCH (08:27)
[2017-03-05] MEDS: Dronabinol 2.5mg Cap ORAL SCH ×2 (08:27→08:43)
[2017-03-05] MEDS: Xarelto 15mg tab ORAL SCH ×3 (08:27→20:41)
[2017-03-05] MEDS: Morphine Sulfate 2mg/ml Inj IVP PRN (08:28)
[2017-03-05 12:23] VITALS: BP 88/51
[2017-03-05 16:21] VITALS: BP 106/60
[2017-03-05 19:00] VITALS: BP 94/46
--- NOTE | 2017-03-05 19:13 | Pulmonology Progress Note ---
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 Subjective ROS Limited/Unobtainable: Yes Constitutional: Reports: chills, fatigue Respiratory: Reports: dyspnea at rest, productive cough, shortness of breath, sputum Neurologic: Reports: confusion, weakness Allergies: Coded Allergies: IODINE (Verified Allergy, Mild, 10/11/11) PENICILLIN G (Verified Allergy, Mild, 10/11/11) SULFA (SULFONAMIDE ANTIBIOTICS) (Verified Allergy, Mild, 10/11/11) PENICILLINS (Unverified Allergy, Unknown, 02/20/17) Objective Last 24 Hour Vital Signs Date Time Temp Pulse Resp B/P Pulse Ox O2 Delivery O2 Flow Rate FiO2 03/05/17 16:21 97.6 91 21 106/60 96 Room Air 03/05/17 12:23 97.5 80 21 88/51 96 Room Air 03/05/17 08:15 97.1 88 21 122/81 97 Room Air 03/05/17 04:00 96.8 97 20 102/49 100 Room Air 03/05/17 00:00 97.2 88 20 99/63 92 Room Air Intake and Output 03/04/17 03/05/17 19:00 07:00 Intake Total 100 ml 120 ml Output Total 40 ml 350 ml Balance 60 ml -230 ml Intake Oral 100 ml 120 ml Output Urine Total 40 ml 350 ml General Appearance: no acute distress HEENT: normocephalic, atraumatic, anicteric, PERRL Respiratory/Chest: chest wall non-tender, decreased breath sounds, accessory muscle use, rhonchi Breasts: no masses Cardiovascular: normal peripheral pulses, normal rate, regular rhythm, no JVD Abdomen: normal bowel sounds, soft, non tender, no organomegaly, non distended Genitourinary: normal external genitalia Extremities: no cyanosis Skin: no rash, no lesions 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, responsive, disoriented Current Medications Medications (Trade) Dose Ordered Sig/Calvin Route PRN Reason Start Time Stop Time Status Last Admin Dose Admin Acetaminophen (Tylenol) 650 mg Q4H PRN ORAL Mild Pain/Temp > 100.5 02/27/17 01:30 03/29/17 01:29 02/28/17 19:25 Al Hydroxide/Mg Hydroxide (Mylanta II) 30 ml Q6H PRN ORAL dyspepsia 02/27/17 03:30 03/29/17 03:29 Dronabinol (Marinol) 2.5 mg DAILY ORAL 02/27/17 09:00 03/29/17 08:59 03/04/17 10:05 Morphine Sulfate (Morphine Sulfate) 2 mg Q4H PRN IVP Severe Pain (Pain Scale 7-10) 02/27/17 02:00 03/06/17 01:59 03/05/17 08:28 Nitroglycerin (Ntg) 0.4 mg Q5MIN X 3 DOSES PRN SL Prn Chest Pain 02/26/17 22:30 03/28/17 22:29 Ondansetron HCl (Zofran) 4 mg Q6H PRN IVP Nausea & Vomiting 02/27/17 03:30 03/29/17 03:29 Polyethylene Glycol (Miralax) 17 gm DAILYPRN PRN ORAL Constipation 02/27/17 21:30 03/29/17 21:29 Promethazine HCl/ Codeine (Phenergan with Codeine) 5 ml Q4H PRN ORAL For Cough 02/27/17 01:30 03/29/17 01:29 Pyridoxine HCl (Vitamin B6) 50 mg DAILY ORAL 02/27/17 09:00 03/29/17 08:59 03/05/17 08:27 Rivaroxaban (Xarelto) 15 mg Q12HR ORAL 02/28/17 21:00 03/21/17 21:01 03/04/17 20:57 Rivaroxaban (Xarelto) 20 mg DAILY ORAL 03/22/17 09:00 04/21/17 08:59 Sodium Phosphate (Fleet's Sodium Phosl Enema) 133 ml DAILY PRN RECTAL Constipation 03/02/17 12:30 04/01/17 12:29 Temazepam (Restoril) 15 mg HSPRN PRN ORAL Insomnia 02/27/17 21:30 03/06/17 21:29 KASANDRA MILLER Mar 05, 2017 19:13
[2017-03-06] VITALS: BP 98/50
[2017-03-06 04:00] VITALS: BP 96/55
--- NOTE | 2017-03-06 08:28 | Consultation ---
DATE OF CONSULTATION: 03/05/2017 CONSULTING PHYSICIAN: Whit Blackwell M.D. ATTENDING PHYSICIAN: Jignesh Isbell M.D. REASON FOR CONSULTATION: 1. Skin tear of the left outer thigh. 2. Sacral pressure ulcer. HISTORY OF PRESENT ILLNESS: This is a 77-year-old woman with multiple medical problems, who was admitted from rehab facility. Her son stated that she previously had a left lateral thigh skin tear, which has been improving with wound care in the hospital and sacral pressure ulcer. PAST MEDICAL HISTORY: History of metastatic sarcoma, shortness of breath, and diabetes. MEDICATIONS: The patient is on rivaroxaban, Restoril, Marinol, and Phenergan. ALLERGIES: The patient is allergic to iodine, penicillin, and sulfa. PHYSICAL EXAMINATION: GENERAL: The patient is alert, in no acute distress. CARDIOVASCULAR: Regular rate and rhythm. LUNGS: Clear to auscultation bilaterally. ABDOMEN: Soft, nontender, and nondistended. The patient has a Garcia in place. In the sacral area, there is a healed epithelialized pressure ulcer. The patient has an edema of her left lower extremity. On her left outer thigh, there are two epithelialized wounds, one measuring 1.5 cm x 0.2 cm and another one 2.5 cm x .2 cm and they are epithelialized. ASSESSMENT: 1. Healed sacral pressure ulcer. 2. Healed left outer thigh skin tears X2. RECOMMENDATIONS: 1. Left thigh wound. Cleanse with normal saline. Pat dry, apply hydrogel and cover with a clean dry dressing. 2. Sacral wound. Cleanse with saline, pat dry, apply Triad cream. Pad and Protect 3. For pressure wound precaution, turn and reposition q@hours and PRN. The patient tends to favor the left side. Please make sure that she shifts her weight. Optimize nutrition. When floating the heels, make sure that heel protectors are not overly tight. Also, the patient was covered with several heavy blankets and if they are placing pressure on her feet , recommend a foot cradle. Whit Blackwell M.D. DR: NIKKY JOB#: [id number] CC: STEVAN
[2017-03-06] MEDS: Xarelto 15mg tab ORAL SCH (09:00)
[2017-03-06] MEDS: Pyridoxine 50mg tab ORAL SCH (09:00)
[2017-03-06] MEDS: Dronabinol 2.5mg Cap ORAL SCH (09:00)
--- NOTE | 2017-03-06 09:23 | Infectious Diseases Prog Note ---
Assessment/Plan Assessment/Plan A: The patient is a 77-year-old female with Pneumonia, SP Rx Urine Legionella antigen : Neg SP thoracentesis ( BL ) Neg for Empyema UCx : PSA ( colonizer ) Mild leukocytosis, SP Pl effusion SP ultrasound-guided thoracentesis, yielding 960 cc ( no evidence of empyema ) 02/[address]: Multiple lung masses compatible with metastatic neoplasm , Liver Mass, BL Renal Masses w Mild [place] , Bilateral adrenal masses Bilateral lower extremity edema x1 week rule out possibility of DVT History of PE. HTN History of lung cancer. Diabetes PLAN: Monitor pt off of AB Rx ( 02/25 SP Levaquin d# 5 ) Monitor CBC. Monitor BMP. Monitor chest x-ray result Subjective Constitutional: Denies: anorexia, chills, drenching sweats, fatigue, fever, no symptoms, other Allergies: Coded Allergies: IODINE (Verified Allergy, Mild, 10/11/11) PENICILLIN G (Verified Allergy, Mild, 10/11/11) SULFA (SULFONAMIDE ANTIBIOTICS) (Verified Allergy, Mild, 10/11/11) PENICILLINS (Unverified Allergy, Unknown, 02/20/17) Objective Vital Signs Last 24 Hour Vital Signs Date Time Temp Pulse Resp B/P Pulse Ox O2 Delivery O2 Flow Rate FiO2 03/06/17 04:00 98.2 80 16 96/55 94 Room Air 03/06/17 00:00 96.0 81 18 98/50 96 03/05/17 19:00 96.8 87 16 94/46 94 Room Air 03/05/17 16:21 97.6 91 21 106/60 96 Room Air 03/05/17 12:23 97.5 80 21 88/51 96 Room Air Height (Feet): 5 Height (Inches): 0.00 Weight (Pounds): 120 HEENT: anicteric Respiratory/Chest: normal breath sounds Cardiovascular: regular rhythm Abdomen: non distended Current Medications Medications (Trade) Dose Ordered Sig/Calvin Route PRN Reason Start Time Stop Time Status Last Admin Dose Admin Acetaminophen (Tylenol) 650 mg Q4H PRN ORAL Mild Pain/Temp > 100.5 02/27/17 01:30 03/29/17 01:29 02/28/17 19:25 Al Hydroxide/Mg Hydroxide (Mylanta II) 30 ml Q6H PRN ORAL dyspepsia 02/27/17 03:30 03/29/17 03:29 Dronabinol (Marinol) 2.5 mg DAILY ORAL 02/27/17 09:00 03/29/17 08:59 03/04/17 10:05 Nitroglycerin (Ntg) 0.4 mg Q5MIN X 3 DOSES PRN SL Prn Chest Pain 02/26/17 22:30 03/28/17 22:29 Ondansetron HCl (Zofran) 4 mg Q6H PRN IVP Nausea & Vomiting 02/27/17 03:30 03/29/17 03:29 Polyethylene Glycol (Miralax) 17 gm DAILYPRN PRN ORAL Constipation 02/27/17 21:30 03/29/17 21:29 Promethazine HCl/ Codeine (Phenergan with Codeine) 5 ml Q4H PRN ORAL For Cough 02/27/17 01:30 03/29/17 01:29 Pyridoxine HCl (Vitamin B6) 50 mg DAILY ORAL 02/27/17 09:00 03/29/17 08:59 03/05/17 08:27 Rivaroxaban (Xarelto) 15 mg Q12HR ORAL 02/28/17 21:00 03/21/17 21:01 03/05/17 20:41 Rivaroxaban (Xarelto) 20 mg DAILY ORAL 03/22/17 09:00 04/21/17 08:59 Sodium Phosphate (Fleet's Sodium Phosl Enema) 133 ml DAILY PRN RECTAL Constipation 03/02/17 12:30 04/01/17 12:29 Temazepam (Restoril) 15 mg HSPRN PRN ORAL Insomnia 02/27/17 21:30 03/06/17 21:29 ANDIE MOREL M.D. Mar 06, 2017 09:23
--- NOTE | 2017-03-06 09:40 | Wound Care Consultation ---
Wound Assessment Wound Assessment : Wound Number: #1 Wound Present on Admission: Yes New Wound: No Status Change of Wound: No Wound Location Body Site Modif: mid Wound Location Body Site: sacral Wound Type: pressure ulcer Caitie Test: Does not Caitie Pressure Ulcer Stage: deep tissue injury Wound Thickness: Full Thickness Wound Length: 5.0 Wound Width: 4.0 Wound Depth: utd Percent of Wound Purple/Maroon: 100 Wound Drainage Amount: None Wound Drainage Odor: None/Absent Tissue Surrounding Wound: Denuded - noted left sacral area small area with denuded skin. site remains as DTI. Wound General Appearance: Reddened - maroon Wound Comment #1 Sacral DTI pressure ulcer upon reassessment noted small area on left side sacral with denuded skin,site remains as deep tissue injury. Recommendation -Sacral area DTI Cleanse with saline pat dry apply Triad cream,cover with biatain silicone daily and prn if soiled/dislodged. -Turn and reposition -Keep clean dry -Low air loss overlay mattress -Optimize nutrition -Heel protector -Assess and f/u accordingly for any changes JOBY VALADEZ Mar 06, 2017 09:40
[2017-03-06 11:43] VITALS: BP 110/67
--- NOTE | 2017-03-06 19:56 | Pulmonology Progress Note ---
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 Subjective ROS Limited/Unobtainable: Yes Constitutional: Reports: anorexia, chills, fatigue Respiratory: Reports: dyspnea at rest, dyspnea on exertion, pleuritic pain, productive cough, shortness of breath, sputum, wheezing Neurologic: Reports: confusion, weakness Allergies: Coded Allergies: IODINE (Verified Allergy, Mild, 10/11/11) PENICILLIN G (Verified Allergy, Mild, 10/11/11) SULFA (SULFONAMIDE ANTIBIOTICS) (Verified Allergy, Mild, 10/11/11) PENICILLINS (Unverified Allergy, Unknown, 02/20/17) Objective Last 24 Hour Vital Signs Date Time Temp Pulse Resp B/P Pulse Ox O2 Delivery O2 Flow Rate FiO2 03/06/17 11:43 98.2 66 20 110/67 97 Room Air 03/06/17 04:00 98.2 80 16 96/55 94 Room Air 03/06/17 00:00 96.0 81 18 98/50 96 Intake and Output 03/05/17 03/06/17 19:00 07:00 Intake Total 500 ml 240 ml Output Total 20 ml 150 ml Balance 480 ml 90 ml Intake Oral 0 ml 240 ml IV Total 500 ml Output Urine Total 20 ml 150 ml General Appearance: no acute distress HEENT: normocephalic, atraumatic, PERRL Respiratory/Chest: chest wall non-tender, decreased breath sounds, accessory muscle use, crackles/rales, rhonchi Breasts: no masses Cardiovascular: normal peripheral pulses, normal rate, regular rhythm, no JVD Abdomen: normal bowel sounds, soft, non tender, no organomegaly, non distended Genitourinary: normal external genitalia Extremities: no cyanosis Skin: rash, lesions 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
--- NOTE | 2017-03-07 09:23 | Discharge Summary ---
Discharge Summary Hospital Course Date of Admission Feb 20, 2017 at 18:33 Date of Discharge Mar 06, 2017 at 12:18 Admitting Diagnosis dyspnea HPI Liz Baker is a 77 year old female who was admitted on Feb 20, 2017 at 18: 33 for Dyspnea Hospital Course dc summary #[id number] Discharge Medications New Medications: Dronabinol* (Marinol*) 2.5 Mg Capsule 2.5 MG ORAL DAILY for 30 Days, CAP Continued Medications: Acetaminophen* (Acetaminophen*) 160 Mg/5 Ml Solution 650 MG ORAL Q6H PRN for Mild Pain/Temp > 100.5, ML Oxycodone Hcl* (Oxycodone Hcl*) 5 Mg Capsule 5 MG ORAL Q4H PRN for For Pain, CAP 0 Refills Rivaroxaban (Xarelto*) 10 Mg Tablet 20 MG ORAL DAILY, #30 TAB 0 Refills Discharge Condition Upon Discharge: stable, other - overall prognosis is grave Discharge Disposition Patient was discharged to SNF/Subacute Facility(03) Discharge Diagnoses: Aman (Jemma),Beverley HAYES Mar 07, 2017 09:23
--- NOTE | 2017-03-07 23:48 | Discharge Summary 2 SIG ---
DATE OF ADMISSION: 02/20/2017 DATE OF DISCHARGE: 03/06/2017 REASON FOR ADMISSION: 77-year-old female was sent from a correction with shortness of breath. The patient with a stage III uterine cancer as well as history of PE, hypertension, and diabetes. The patient was unable to provide any history. The patient essentially was nonverbal, making eye contact only. The patient initially was placed on 100% nonrebreathing mask. Blood pressure was low- 80/50. Initial chest x-ray was abnormal. It revealed lateral lung nodules/granulomatous versus neoplastic. Bibasilar pleural effusion, nonspecific. Underlying atelectasis versus pneumonia, not excludable. CT of the chest was subsequently ordered for further evaluation, which revealed multiple lung nodules consistent with metastatic neoplasm as well as the liver mass, renal mass, and bilateral adrenal mass suspicious for neoplasm. Laboratory work revealed BUN -16 and creatinine -1.4. Mild leukocytosis - 12.6. ABG revealed acute metabolic acidosis with a pH of 7.22 and bicarbonate of 18. The patient was hypoxemic with PO2 40% . The patient was placed on nonrebreathing mask. The patient was started on intravenous fluids and empiric antibiotics. The patient was full code. The patient was admitted for further management. ADMITTING DIAGNOSES: 1. Sepsis. 2. Acute hypoxemic respiratory failure. 3. Bilateral pleural effusion. 4. Obstructive uropathy. 5. Metastatic lung carcinoma. 6. History of uterine cancer with metastasis. 7. Pneumonia. HOSPITAL STAY: The patient was admitted. The patient was started on the IV fluids. Supplemental oxygen and pulmonary toilet provided as needed. The patient had undergone subsequently thoracentesis of left pleural effusion on 02/21/2017, which yielded 960 mL of pleural fluid and thoracentesis of right pleural effusion on 02/23/2017, which yielded 1.1 liter of pleural fluid. Pathology of pleural fluid was negative for malignant cells. Chest x-ray after thoracentesis revealed resolution of pleural effusion and no pneumothorax. CT of the chest revealed multiple lobular masses consistent with metastatic neoplasm, liver mass, bilateral renal mass, mild hydro, bilateral adrenal masses, suspicious for malignancy. The patient was able to be weaned from the nonrebreathing mask to nasal cannula and eventually to the room air. Antitussive provided as needed. Infectious Disease doctor followed the patient. Urine culture was positive for Pseudomonas. According to ID, it was colonizer. Blood culture were negative. Pleural fluid culture was negative, no empyema. Sputum culture was not collected. The patient was treated empirically for hospital care associated pneumonia, status post treatment. 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 The patient was started on Coumadin and heparin. INR was subtherapeutic. The patient was declining blood draw. The anticoagulation were changed to Xarelto. Swallow evaluation revealed mild to moderate dysphagia. Speech therapist recommended a video swallow study and speech therapy treatment. Diet provided as per quality of life. Strict aspiration were maintained with one-to-one feeding and strict aspiration precautions. Bowel regimen instituted. Pain management provided. Wound care was administered as per wound care nurse recommendation. The patient had a sacral area deep tissue injury. Further care and terminal prognosis was discussed with the patient's son. The family was not ready for change of the code status or palliative care yet. However family declined further invasive procedures / workup for liver mass, bilateral kidney and bilateral adrenal masses. Appetite stimulant was added to medication regimen. Blood sugar was stable and no treatment was rendered at that time for blood sugar. Blood pressure was stable without any antihypertensive medication. The patient was stable for discharge to the senior care facility. The patient will need at some point, reconsideration for palliative care when family will be ready. Condition grave. Prognosis terminal. DISCHARGE DIAGNOSES: 1. Sepsis. 2. Hypertension. 3. Acute hypoxemic respiratory failure, - resolved. 4. Bilateral pleural effusion. 5. Status post thoracentesis of left pleural effusion on 02/21/2017 5. Status post thoracentesis of right pleural effusion on 02/23/2017. 6. Uterine cancer with metastasis. 7. Metastatic lung carcinoma. 8. Healthcare-associated pneumonia, status post treatment. 9. Acute DVT left lower extremity. 10. Dysphagia. 11. History of PE. 12. History of diabetes. 13. Obstructive uropathy. 14. Dysphagia. 15. Functional quadriplegia. 16. Liver mass. 17. Bilateral adrenal mass. 18. Bilateral renal mass. 19. Sacral area deep tissue injury. DISCHARGE MEDICATIONS: See medication reconciliation list. DISCHARGE INSTRUCTIONS: The patient was discharged to senior care facility. Follow up with medical doctor at the facility. Consider further discussion with the family regarding change in code status and change to palliative/comfort care. Jignesh Isbell M.D. I have been assigned to dictate discharge summary on this account and I was not involved in the patient's management. Beverley Migueldaniel NShane DR: EDGAR JOB#: [id number] CC: STEVAN
[2017-03-22] MEDS ORDERED: Xarelto 10mg tab ORAL SCH (09:00)
== END 2017-03-06 12:18 | DRG 871 ==
LOC: EDBD 17:49 → EMR 18:30 → 2E 18:33 → EDBEDREQ 19:04 → 2E 22:43 → 4E 02-26 22:14
PROC: 0W9B3ZZ Drainage of Left Pleural Cavity, Percutaneous Approach (ICD-10-PCS; principal; 2017-02-21)
PROC: 0W993ZZ Drainage of Right Pleural Cavity, Percutaneous Approach (ICD-10-PCS; 2017-02-23)
DX: A41.9 Sepsis, unspecified organism (principal); J96.01 Acute respiratory failure with hypoxia; L89.150 Pressure ulcer of sacral region, unstageable; J90 Pleural effusion, not elsewhere classified; I82.402 Acute embolism and thrombosis of unspecified deep veins of left lower extremity; J18.9 Pneumonia, unspecified organism; R53.2 Functional quadriplegia; C78.00 Secondary malignant neoplasm of unspecified lung; C55 Malignant neoplasm of uterus, part unspecified; E11.9 Type 2 diabetes mellitus without complications; N13.9 Obstructive and reflux uropathy, unspecified; Z86.711 Personal history of pulmonary embolism; Z88.0 Allergy status to penicillin; Z88.2 Allergy status to sulfonamides; Z88.8 Allergy status to other drugs, medicaments and biological substances; R13.10 Dysphagia, unspecified; R16.0 Hepatomegaly, not elsewhere classified; N28.89 Other specified disorders of kidney and ureter; E27.9 Disorder of adrenal gland, unspecified; I10 Essential (primary) hypertension; D64.9 Anemia, unspecified
CPT/HCPCS: 36415; 36600; 71010; 71250; 76942; 80048; 80053; 80069; 81003; 82164; 82550; 82553; 82803; 83605; 83690; 83880; 84484; 85007; 85025; 85610; 85730; 87040; 87070; 87081; 87086; 87181; 87205; 88104; 89051; 93005; 93970